=== PATIENT | male | born 1955 | race Caucasian/White ===

== ENCOUNTER 2020-02-01 08:27 | Outpatient (REF) | payer MEDICARE, SELFPAY ==
[2020-02-01 10:26] LABS: MANUAL DIFF FLAG NO
[2020-02-01 10:32] LABS: Basophils Percent Auto 0.4 % (0-2); Eosinophils Absolute Auto 0.3 X10*3/uL (0.0-0.4); Eosinophils Percent Auto 5.1 % (0-4); Hematocrit 41.8 % (42-52); Hemoglobin 13.6 g/dl (14.0-18.0); Imm Gran Abs Auto 0.04 X10*3/uL (0.00-0.03); Imm Gran Pct Auto 0.7 % (0.0-0.4); Lymphocytes Absolute Auto 1.2 X10*3/uL (1.2-4.9); Lymphocytes Percent Auto 21.2 % (20-40); Mean Corpuscular HGB Conc 32.5 g/dl (31.0-36.0); Mean Corpuscular Hemoglobin 31.7 pg (27.0-33.0); Mean Corpuscular Volume 97.4 fL (80-98); Mean Platelet Volume 11.3 fL (9.4-12.4); Monocytes Absolute Auto 0.4 X10*3/uL (0.1-1.2); Neutrophils Absolute Auto 3.5 X10*3/uL (2.0-8.3); Neutrophils Percent Auto 64.6 % (45-73); Platelet Count 109 X10*3/uL (160-400); Red Blood Count 4.29 X10*6/uL (4.60-5.80); Red Cell Distribution Width 12.8 % (11.0-16.0); White Blood Count 5.5 X10*3/uL (4.8-10.8)
[2020-02-01 10:55] LABS: Alanine Aminotransferase 14 U/L (0-40); Albumin Level 3.9 g/dL (3.5-5.0); Alkaline Phosphatase 38 U/L (39-117); Anion Gap 12 (12-20); Aspartate Amino Transferase 17 U/L (5-37); Bilirubin Total 0.6 mg/dL (0.0-1.0); Blood Urea Nitrogen 19 mg/dL (9-16); Calcium 8.6 mg/dL (8.4-10.2); Carbon Dioxide 32 mmol/L (22-29); Chloride 104 mmol/L (96-108); Cholesterol 136 mg/dL; Estimated Glomerular Filt Rate 48; Glucose Fasting 103 mg/dL (60-99); HDL Cholesterol 35 mg/dL; LDL Cholesterol Calculated 77 mg/dl; Potassium 3.7 mmol/l (3.3-5.1); Sodium 144 mmol/L (135-145); Total Protein 6.2 g/dL (6.5-8.0); Triglycerides 124 mg/dL
[2020-02-01 11:08] LABS: B Type Natriuretic Peptide 233 pg/mL (<100)
[2020-02-01 11:46] LABS: Microalbum/Creatinine Ratio Ur 437.6 ug/mg cr
== END 2020-02-01 08:28 | disposition home or self-care (01) ==
LOC: HO.WFDLDS 08:27
PROVIDERS: Visit Provider Family Medicine
DX: I50.9 Heart failure, unspecified (principal); K92.1 Melena; Z00.00 Encounter for general adult medical examination without abnormal findings; E78.1 Pure hyperglyceridemia; R03.0 Elevated blood-pressure reading, without diagnosis of hypertension; I11.0 Hypertensive heart disease with heart failure
CPT/HCPCS: 36415; 80053; 80061; 82043; 83880; 85025

== ENCOUNTER 2020-02-23 09:29 | Outpatient (REF) | payer MEDICARE, SELFPAY ==
[2020-02-23 10:53] LABS: B Type Natriuretic Peptide 164 pg/mL (<100)
[2020-02-23 10:54] LABS: Anion Gap 13 (12-20); Blood Urea Nitrogen 23 mg/dL (9-16); Calcium 9.2 mg/dL (8.4-10.2); Carbon Dioxide 30 mmol/L (22-29); Chloride 102 mmol/L (96-108); Estimated Glomerular Filt Rate 50; Glucose Random 93 mg/dL (60-115); Potassium 3.7 mmol/l (3.3-5.1); Sodium 141 mmol/L (135-145)
== END 2020-02-23 09:30 | disposition home or self-care (01) ==
LOC: HO.LAB 09:29
PROVIDERS: Visit Provider Family Medicine
DX: I50.9 Heart failure, unspecified (principal)
CPT/HCPCS: 80048; 83880

== ENCOUNTER 2020-02-28 10:58 | Outpatient (REF) | payer MEDICARE, SELFPAY ==
[2020-02-28 13:56] LABS: Anion Gap 12 (12-20); Blood Urea Nitrogen 28 mg/dL (9-16); Calcium 8.9 mg/dL (8.4-10.2); Carbon Dioxide 32 mmol/L (22-29); Chloride 102 mmol/L (96-108); Estimated Glomerular Filt Rate 48; Glucose Random 99 mg/dL (60-115); Potassium 4.3 mmol/l (3.3-5.1); Sodium 142 mmol/L (135-145)
[2020-02-28 14:04] LABS: B Type Natriuretic Peptide 137 pg/mL (<100)
== END 2020-02-28 10:59 | disposition home or self-care (01) ==
LOC: HO.WFDLDS 10:58
PROVIDERS: Visit Provider Family Medicine
DX: N18.9 Chronic kidney disease, unspecified (principal); I50.9 Heart failure, unspecified; Z13.9 Encounter for screening, unspecified
CPT/HCPCS: 80048; 83880

== ENCOUNTER 2020-03-20 10:02 | Outpatient (REF) | payer MEDICARE, SELFPAY ==
[2020-03-20 14:10] LABS: Alanine Aminotransferase 14 U/L (0-40); Albumin Level 4.5 g/dL (3.5-5.0); Alkaline Phosphatase 44 U/L (39-117); Anion Gap 12 (12-20); Aspartate Amino Transferase 16 U/L (5-37); Bilirubin Total 0.6 mg/dL (0.0-1.0); Blood Urea Nitrogen 27 mg/dL (9-16); Calcium 8.9 mg/dL (8.4-10.2); Carbon Dioxide 32 mmol/L (22-29); Chloride 104 mmol/L (96-108); Estimated Glomerular Filt Rate 46; Glucose Fasting 72 mg/dL (60-99); Microalbum/Creatinine Ratio Ur 1072.5 ug/mg cr; Potassium 4.7 mmol/l (3.3-5.1); Sodium 143 mmol/L (135-145); Total Protein 6.6 g/dL (6.5-8.0)
[2020-03-20 14:22] LABS: B Type Natriuretic Peptide 199 pg/mL (<100)
== END 2020-03-20 10:03 | disposition home or self-care (01) ==
LOC: HO.WFDLDS 10:02
PROVIDERS: PCP Family Medicine; Visit Provider Family Medicine
DX: I13.0 Hypertensive heart and chronic kidney disease with heart failure and stage 1 through stage 4 chronic kidney disease, or unspecified chronic kidney disease (principal); N18.9 Chronic kidney disease, unspecified; I50.9 Heart failure, unspecified; Z00.00 Encounter for general adult medical examination without abnormal findings
CPT/HCPCS: 80053; 82043; 83880

== ENCOUNTER 2020-03-25 16:00 | Inpatient (IN) | payer MEDICARE, SELFPAY ==
[2020-03-20 09:37] VITALS: BMI 38.3
--- NOTE | 2020-03-22 10:08 | HO.ANESPROP2 ---
Documented by User: Supriya Leblanc 03/22/20 13:07 HPI - Anesthesia Eval Consult details Narrative: 64yo M for Upper Endoscopy and Colonoscopy [facility] Past Medical History Medical History Chronic renal failure Chronic renal insufficiency Congestive heart failure COPD (chronic obstructive pulmonary disease) CVA (cerebral vascular accident) History of hepatitis C virus infection Nicotine dependence Peripheral vascular disease Pneumonia Thrombocytopenia Vocal cord polyps Surgical History Surgical History H/O bilateral hip replacements H/O colonoscopy History of esophagogastroduodenoscopy (EGD) Hx of cholecystectomy Social History Social History Smoking Status: Smoker, status unknown Years Smoked: 50 Smoked in Last 30 Days: Yes Patient Interested in Nicotine Replacement: No Patient Given Instructions on How to Stop Smoking: No Second Hand Smoke Exposure: No Use of substances other than those prescribed or required for medical reasons: No Advance Directives: No Advance Directives Information Provided: Yes Meds Allergies Allergy/AdvReac Type Severity Reaction Status Date / Time No Known Allergies Allergy Unknown Verified 03/20/20 10:48 Home Medications Medication Instructions Recorded Confirmed Type albuterol sulfate 90 mcg/actuation 1 - 2 puff INHALATION Q4H PRN 01/31/20 03/20/20 History aerosol inhaler flu vacc 2019-(63yr ml IM 01/31/20 History up)-MF59C(PF) 60 mcg(15 mcgx4)/0.5 mL IM syringe flu vacc [id number](63yr up)PF 180 ml IM 01/31/20 History mcg/0.5 mL intramuscular syringe pneumoc 13-jazmyn conj-dip cr(PF) 0.5 ml IM 01/31/20 History mL IM syringe aspirin 25 mg-dipyridamole 200 mg 1 cap PO BID 02/28/20 03/25/20 History capsule,ext.release 12 hr multiphase fluticasone 100 mcg-salmeterol 50 1 inh INHALATION BID 02/28/20 History mcg/dose blistr powdr for inhalation Exam Exam Date and Time: March 22, 2020 1008 Height,Weight and Vital Signs: Height 5 ft 11 in Weight 124.738 kg Pertinent Lab Results Pertinent Lab Results: Laboratory Tests 02/01/20 03/20/20 08:40 10:10 WBC 5.5 Hgb 13.6 L Hct 41.8 L Plt Count 109 L Sodium 143 Potassium 4.7 Chloride 104 Carbon Dioxide 32 H BUN 27 H Creatinine 1.51 H Narrative Narrative: EKG 02/2020: SR with PACs at 76; cannot exclude inferior infarct patter (poor data quality) ECHO: LVEF 60-65%; No RWMA; RV is mildly dilated, RV sys function is mildly reduced; No signif valve abnormalities Assessment and Plan Assessment Anesthesia Assessment: Chart Reviewed Documented by User: Nanette Owens 03/25/20 12:13 PMFSH Past Medical History Medical History Chronic renal failure Chronic renal insufficiency Congestive heart failure COPD (chronic obstructive pulmonary disease) CVA (cerebral vascular accident) History of hepatitis C virus infection Nicotine dependence Peripheral vascular disease Pneumonia Thrombocytopenia Vocal cord polyps Surgical History Surgical History H/O bilateral hip replacements H/O colonoscopy History of esophagogastroduodenoscopy (EGD) Hx of cholecystectomy Social History Social History Smoking Status: Smoker, status unknown Years Smoked: 50 Smoked in Last 30 Days: Yes Patient Interested in Nicotine Replacement: No Patient Given Instructions on How to Stop Smoking: No Second Hand Smoke Exposure: No Use of substances other than those prescribed or required for medical reasons: No Advance Directives: No Advance Directives Information Provided: Yes Meds Allergies Allergy/AdvReac Type Severity Reaction Status Date / Time No Known Allergies Allergy Unknown Verified 03/20/20 10:48 Home Medications Medication Instructions Recorded Confirmed Type albuterol sulfate 90 mcg/actuation 1 - 2 puff INHALATION Q4H PRN 01/31/20 03/20/20 History aerosol inhaler flu vacc (65yr ml IM 01/31/20 History up)-MF59C(PF) 60 mcg(15 mcgx4)/0.5 mL IM syringe flu vacc [id number](63yr up)PF 180 ml IM 01/31/20 History mcg/0.5 mL intramuscular syringe pneumoc 13-jazmyn conj-dip cr(PF) 0.5 ml IM 01/31/20 History mL IM syringe aspirin 25 mg-dipyridamole 200 mg 1 cap PO BID 02/28/20 03/25/20 History capsule,ext.release 12 hr multiphase fluticasone 100 mcg-salmeterol 50 1 inh INHALATION BID 02/28/20 History mcg/dose blistr powdr for inhalation Exam Airway Mallampati Class: III TM Dist: >3cm Neck ROM: Full
[2020-03-25] VITALS (15 sets, daily range): BP systolic 80–168; BP diastolic 47–105; PULSE 53–85; RESP 15–26; TEMP 35.6–38.1; O2SAT 76–100; BMI 37.3
--- NOTE | 2020-03-25 | US_ITS ---
EXAMINATION: US VENOUS ULTRASOUND WITH DOPPLER LOWER EXTREMITY, BILATERAL CLINICAL INFORMATION: Question DVT COMPARISON: None TECHNIQUE: Ultrasound of the deep veins is performed from the hip to the calf with compression sonography and color and pulse Doppler assessment. Spectral analysis with color-flow imaging is performed. FINDINGS: RIGHT: There is normal venous compression and respiratory variation and augmented flow. The visualized common femoral vein, superficial femoral vein, profunda femoral vein, popliteal vein, and the trifurcation region shows no evidence of deep venous thrombosis. There is no significant popliteal fossa cyst. LEFT: There is normal venous compression and respiratory variation and augmented flow. The visualized common femoral vein, superficial femoral vein, profunda femoral vein, popliteal vein, and the trifurcation region shows no evidence of deep venous thrombosis. There is no significant popliteal fossa cyst. If the patient's symptoms persist, followup ultrasound in 5 days 7 days might be of value to exclude proximal propagation from a non-visualized calf vein. US/US venous duplex LE BI IMPRESSION: No DVT demonstrated in the bilateral lower extremity.
--- NOTE | 2020-03-25 | XR_ITS ---
EXAMINATION: XR CHEST CLINICAL INFORMATION: Status post endotracheal tube placement COMPARISON: 10/10/2017 TECHNIQUE: Frontal view of the chest was obtained. FINDINGS: The patient is suboptimally positioned. There is an endotracheal tube with tip 6 cm above the moe. There is dense left base opacity and volume loss. Coarse interstitial markings are present. No pneumothorax. Cardiomediastinal silhouette is partially obscured by the left base consolidation. There is a right internal jugular approach central venous catheter with tip in the mid-lower superior vena cava. XR/XR chest 1V IMPRESSION: There is dense left base opacity which may represent atelectasis, aspiration, or pneumonia. There may be a concomitant pleural effusion as well.
--- NOTE | 2020-03-25 | XR_ITS ---
EXAMINATION: XR CHEST CLINICAL INFORMATION: Looking for possible perforation COMPARISON: Chest x-ray 03/25/2020 TECHNIQUE: Frontal view of the chest was obtained. Please note the upper approximately one third of both lungs were excluded from this chest x-ray. FINDINGS: Cardiac silhouette is not enlarged. Asymmetric prominence of the left perihilar structures. There is a small left-sided pleural effusion with suspected overlying airspace disease. Enteric tube terminates below the level of the diaphragm in a similar configuration. Endotracheal tube not clearly visualized is present. The distal portion of a right-sided suspected jugular catheter is similar in orientation. XR/XR chest 1V IMPRESSION: Suboptimal chest x-ray as the upper proximal one third of both lungs are excluded. There is asymmetrical prominence of left perihilar structures appears to be new finding from chest x-ray earlier today at 4:54 PM. Recommend repeat PA and lateral radiographs for more detailed evaluation.
--- NOTE | 2020-03-25 15:18 | PM.OP ---
Brief Operative Note Date of Service: 03/25/20 Pre-op diagnosis: Heme + stool, Melena. Post-op diagnosis: other (Gastropathy/gastritis, Hiatal hernia, Colon polyps, Diverticulosis, Internal hemorrhoids) Procedure: EGD with biopsy; Colonoscopy to cecum and TI with snare polypectomy x 5, with clipping of the polypectomy sites in the transverse colon, at 80cm, at 60cm, at 20cm. Surgeon: Dylon Barcenas Anesthesia: MAC Estimated blood loss (mL): 4.0 Pathology: other (A. Gastric antrum B. Cecal polyp C. Transverse colon polyp D. Polyp at 60cm E. Polyp at 80cm F. Polyp at 20cm) Condition: stable Disposition: PACU
[2020-03-25 15:50] LABS: Glucose, Whole Blood 100 mg/dL (60-115)
[2020-03-25 16:24] LABS: Pt Ventilation O2% 100%
[2020-03-25 16:25] LABS: pH ABG 7.23 (7.35-7.45)
[2020-03-25 16:26] LABS: Base Excess ABG 0.7; HCO3 ABG 30 mmol/l (22-26); Oxygen Saturation ABG 81.5 %; PO2 ABG 55 mmhg (83-108)
[2020-03-25 16:27] LABS: ABG PCO2 75 mmhg (32-45)
--- NOTE | 2020-03-25 17:06 | W.PM.CCHP ---
Procedures Central Line Placement Right IJ: Central Line Comments: Right internal jugular triple-lumen central venous catheter emergently placed for vasopressor support under ultrasound guidance and usual sterile conditions with no immediate complications. Line position verified on chest x-ray.
--- NOTE | 2020-03-25 17:07 | P.HPCC_ITS ---
History of Present Illness Date of Service: 03/25/20 64-year-old gentleman with underlying history of CVA, obesity, DELGADO, hep C, chronic renal failure, chronic congestive heart failure with recent admission to [facility] and at the end of December of 2019 for an aspiration pneumonia requiring ventilatory support admitted after an elective colonoscopy on 03/25/2020 when he required re-intubation postprocedure in the PACU for acute hypoxic and hypercapnic respiratory failure further complicated by hypotension requiring placement of central venous catheter and vasopressor support. Review of Systems Review of Systems: Yes unobtainable due to endotracheal tube and Unobtainable due to mental condition [facility] Past Medical History Medical History Chronic renal failure Chronic renal insufficiency Congestive heart failure COPD (chronic obstructive pulmonary disease) CVA (cerebral vascular accident) History of hepatitis C virus infection Nicotine dependence Peripheral vascular disease Pneumonia Thrombocytopenia Vocal cord polyps Surgical History Surgical History H/O bilateral hip replacements H/O colonoscopy History of esophagogastroduodenoscopy (EGD) Hx of cholecystectomy Social History Social History Smoking Status: Smoker, status unknown Years Smoked: 50 Smoked in Last 30 Days: Yes Patient Interested in Nicotine Replacement: No Patient Given Instructions on How to Stop Smoking: No Second Hand Smoke Exposure: No Use of substances other than those prescribed or required for medical reasons: No Advance Directives: No Advance Directives Information Provided: Yes Meds Allergies Allergy/AdvReac Type Severity Reaction Status Date / Time No Known Allergies Allergy Unknown Verified 03/20/20 10:48 Home Medications Medication Instructions Recorded Confirmed Type albuterol sulfate 90 mcg/actuation 1 - 2 puff INHALATION Q4H PRN 01/31/20 03/20/20 History aerosol inhaler flu vacc 2019-(65yr ml IM 01/31/20 History up)-MF59C(PF) 60 mcg(15 mcgx4)/0.5 mL IM syringe flu vacc [id number](63yr up)PF 180 ml IM 01/31/20 History mcg/0.5 mL intramuscular syringe pneumoc 13-jazmyn conj-dip cr(PF) 0.5 ml IM 01/31/20 History mL IM syringe aspirin 25 mg-dipyridamole 200 mg 1 cap PO BID 02/28/20 03/25/20 History capsule,ext.release 12 hr multiphase fluticasone 100 mcg-salmeterol 50 1 inh INHALATION BID 02/28/20 History mcg/dose blistr powdr for inhalation Physical Exam Vital Signs: Vital Signs: Last Vital Signs Temp 96.1 F L 03/25/20 16:56 Pulse 55 03/25/20 16:56 Resp 24 H 03/25/20 16:56 BP 80/47 L 03/25/20 16:56 Pulse Ox 81 L 03/25/20 16:56 Body Mass Index 37.3 Const: General: no acute distress and other (Sedated on the vent) Nutritional Appearance: obese Eyes: Sclerae: sclerae normal EOM: EOMs intact bilaterally Neck: Neck: Yes no lymphadenopathy, Yes trachea midline and Yes supple Resp: Auscultation: other (For air movement at the left base, otherwise clear) Cardio: Rate: bradycardic Rhythm: regular rhythm Heart sounds: no gallops, no murmurs and no rubs GI: Palpation (GI): Soft to palpation and Other GI palpation findings present ( Nontender) Auscultation: normal bowel sounds Extrem: General: No clubbing, No cyanosis and Yes edema (Trace bilateral) Results Labs Labs: Laboratory Results - last 24 hr 03/25/20 03/25/20 15:42 16:15 ABG pH 7.23 L ABG pCO2 75 H* ABG pO2 55 L ABG HCO3 30 H ABG O2 Saturation 81.5 ABG Base Excess 0.7 Oxygen Given 100% POC Glucose 100 Assessment and Plan (1) Acute respiratory failure with hypoxia and hypercapnia: Status: Acute Assessment: 64-year-old gentleman with underlying morbid obesity, COPD, CHF, admitted on 03/25/2020 when he required intubation in PACU after an elective colonoscopy for an acute hypoxic and hypercapnic respiratory failure with possible aspiration component. Plan: Neuro: No acute issues. Cardiac: Hypertension, likely secondary to requirements for sedation. Underlying history of congestive heart failure. Cardiac markers are pending. Pulmonary: Acute hypoxic and hypercapnic respiratory failure requiring intubation and ventilatory support. Possible aspiration pneumonia/pneumonitis component. Underlying obstructive sleep apnea/obesity hyperventilation syndrome. Renal: No acute issues. Underlying history of chronic renal disease Endo: No acute issues. GI: Status post colonoscopy with visualization biopsy of several polyps. ID: Empirically covered with Unasyn for possible aspiration pneumonitis/pneumonia. Heme/Onc: No acute issues. Psych: No acute issues. Miscellaneous: No acute issues. Prophylaxis: Ppi, intermittent pneumatic compression Diet: Nothing by mouth Critical care time spent: 90 minutes excluding separately billable procedures (2) Sleep apnea: Status: Acute (3) Chronic renal failure: Status: Acute Critical Care Time Critical Care Time (minutes): 90
[2020-03-25] MEDS: fentaNYL citrate/NS 1,000 MCG/100 ML PLAST..BAG 5 MCG IVCONT ×2 (17:27→23:24)
[2020-03-25] MEDS: propofoL 1,000 MG/100 ML VIAL 14.59 MG IVCONT ×3 (17:27→23:24)
[2020-03-25] MEDS: Chlorhexidine Gluc Oral Rinse 15 ML MOUTHWASH BUCCAL ×2 (17:29→23:23)
[2020-03-25] MEDS: Pantoprazole Sodium 40 MG in 0.9 % Sodium Chloride 100 ML 400 MG IV (17:29)
[2020-03-25 17:32] LABS: Basophils Percent Auto 0.4 % (0-2); Eosinophils Absolute Auto 0.2 X10*3/uL (0.0-0.4); Eosinophils Percent Auto 1.7 % (0-4); Hematocrit 42.6 % (42-52); Hemoglobin 14.1 g/dl (14.0-18.0); Imm Gran Abs Auto 0.11 X10*3/uL (0.00-0.03); Lymphocytes Absolute Auto 0.6 X10*3/uL (1.2-4.9); Lymphocytes Percent Auto 5.2 % (20-40); MANUAL DIFF FLAG SCAN; Mean Corpuscular HGB Conc 33.1 g/dl (31.0-36.0); Mean Corpuscular Hemoglobin 33.2 pg (27.0-33.0); Mean Corpuscular Volume 100.2 fL (80-98); Mean Platelet Volume 10.7 fL (9.4-12.4); Monocytes Absolute Auto 0.6 X10*3/uL (0.1-1.2); Monocytes Percent Auto 5.4 % (2-11); Neutrophils Absolute Auto 9.6 X10*3/uL (2.0-8.3); Neutrophils Percent Auto 86.3 % (45-73); Platelet Count 144 X10*3/uL (160-400); Red Blood Count 4.25 X10*6/uL (4.60-5.80); Red Cell Distribution Width 14.7 % (11.0-16.0); SCAN SMEAR FLAG 1; White Blood Count 11.1 X10*3/uL (4.8-10.8)
[2020-03-25 17:47] LABS: Lactic Acid 0.7 mmol/L (0.5-2.0)
[2020-03-25 17:49] LABS: Anion Gap 15 (12-20); Blood Urea Nitrogen 27 mg/dL (9-16); Calcium 8.8 mg/dL (8.4-10.2); Carbon Dioxide 29 mmol/L (22-29); Chloride 103 mmol/L (96-108); Creatinine Clr Calc Pharmacy 51.5; Estimated Glomerular Filt Rate 36; Glucose Random 98 mg/dL (60-115); Potassium 4.2 mmol/l (3.3-5.1); Sodium 143 mmol/L (135-145)
[2020-03-25 17:51] LABS: SLIDE REVIEW VERIFIED
[2020-03-25 17:56] LABS: B Type Natriuretic Peptide 261 pg/mL (<100)
[2020-03-25] MEDS: Ampicillin Sodium/Sulbactam Na 3 GM in 0.9 % Sodium Chloride 100 ML IV ×2 (19:39→23:25)
[2020-03-25] MEDS: Albuterol/Iprat 2.5/0.5MG 3 ML AMPUL.NEB INHALE (19:46)
[2020-03-25] MEDS: Albumin Human 25 % 100 ML IV (21:06)
[2020-03-25 22:41] LABS: Influenza A PCR NEGATIVE (Negative); Influenza B PCR NEGATIVE (Negative); Resp Syncy Virus RNA Qual PCR NEGATIVE (Negative); SARS COV2 PCR INHOUSE NEGATIVE (Negative)
--- NOTE | 2020-03-25 22:59 | OP_ITS ---
SURGEON: Dylon Barcenas MD INDICATIONS: The patient presents for evaluation of recently reported melena and heme-positive stool, as well as hematochezia, while hospitalized at [facility]. PREOPERATIVE DIAGNOSIS: Reported melena, heme-positive stool, hematochezia. POSTOPERATIVE DIAGNOSIS: Reported melena, heme-positive stool, hematochezia, gastritis, probable portal gastropathy, colon polyps, diverticulosis, internal hemorrhoids. PROCEDURE PERFORMED: Esophagogastroduodenoscopy with biopsies, and colonoscopy to the cecum and terminal ileum with snare polypectomy, placement of submucosal ink markings, and placement of Resolution clips. Full consent has been obtained from him for this, including risks of bleeding and perforation. ESTIMATED BLOOD LOSS: COMPLICATIONS: Respiratory compromise ANESTHESIA: Monitored anesthesia care, glucagon 1 mg IV x1 dose. ASSISTANTS: SPECIMENS: DESCRIPTION OF PROCEDURE: The patient was placed in the left lateral decubitus position. The Olympus video gastroscope was passed in the posterior oropharynx and upper esophagus under direct vision. The scope was passed slowly to the distal esophagus. The gastroesophageal junction appeared at 38 cm. There was no sign of any esophagitis nor varices. There was some slight irregularity consistent with some GERD changes. There was no definitive evidence of Colby's mucosa. The scope was advanced to the pylorus. The duodenum was cannulated to the descending portion. The duodenum including the bulb appeared normal without mass or ulceration. The scope was withdrawn back in the stomach. The gastric antrum had some changes of gastritis with some edema and erythema, but no erosions or ulceration. There was good peristalsis. The scope was retroflexed visualizing the proximal stomach carefully, which appeared consistent with a portal gastropathy with congestion and cobblestoning of the mucosa. There was no evidence of any varices. The scope was straightened. The scope was withdrawn back to the esophagus. Again, there was no evidence of any esophagitis nor varices. Of note I did not obtain any biopsies in the upper GI tract due to the fact that he has to go back on his Aggrenox, although based on the subsequent findings in his colonoscopy that proved to be a moot issue. The scope was withdrawn from the patient, he was turned around for the colonoscopy. The digital rectal exam revealed no abnormalities. The Olympus video pediatric colonoscope was entered into the rectum advanced easily to the cecum. Once in the cecum I did identify cecal pouch with appendiceal orifice and a normal-appearing ileocecal valve. The terminal ileum was cannulated and appeared normal. The scope was withdrawn back into the colon. The entire cecum was well visualized. In the cecum was an approximately 10 mm polyp, which was snared and recovered by suction. The polypectomy site appeared clean, without any sign of residual polyp nor bleeding. The scope was then slowly withdrawn assessing all mucosal surfaces carefully. Preparation was excellent. Throughout this portion of the procedure, the colon had a great deal of peristalsis and spasm, and the procedure was also made more difficult in regard to the patient coughing and continuing to pass flatus throughout the procedure. In the transverse colon was a large approximately 2.5 to 3 cm broad-based grossly adenomatous and somewhat friable lesion. This was removed in piecemeal fashion by snare polypectomy. Ultimately, there was no sign of any residual polyp and there was no bleeding. However, given the size of the lesion, I did place 2 submucosal ink markings on each side of the polypectomy site with good markings noted. I also placed 3 Resolution clips on the polypectomy site as well. the 2 large pieces of the polyp were removed via a net with the scope having to be removed from the patient twice and then readvanced back to the polypectomy site each time. The smaller piece of the polyp was recovered by suction. At 60 cm and at 80 cm were large, approximately 2 cm polyps on long and relatively thick stalks. These were each snared and recovered with the retrieval net. Again, each time the scope had to be removed from the patient and readvanced back to the polypectomy sites. Post-polypectomy, there did not appear to be any residual polyp nor bleeding. I did place resolution clips on each of those polypectomy sites. At 20 cm was an approximately 15 mm somewhat ulcerated and grossly adenomatous broad-based polyp which was snared in piecemeal fashion and recovered by withdrawing the pieces on the tip of the scope. Post-polypectomy, there did not appear to be any residual polyp tissue nor bleeding. I did place a Resolution clip on this area as well. Of note, all of the above areas had good hemostasis. Throughout the colon were also small less than 10 mm polyps, which were not removed at this time due to the lengthiness of the procedure. There was no sign of any colitis nor angiodysplasia. There was a moderate amount of sigmoid diverticulosis. In the rectum, the scope was retroflexed visualizing internal hemorrhoids, but no other pathology. The rectal mucosa appeared normal. The scope was straightened and withdrawn from the patient. IMPRESSION: 1. Multiple colon polyps, status post snare polypectomy, marking with submucosal ink, and placement of Resolution clips. 2. Diverticulosis. 3. Internal hemorrhoids. 4. Probable portal gastropathy. 5. Gastritis. 6. Small hiatal hernia. PLAN: The results of the pathology will be checked. Further plans will be made regarding colonoscopy followup and/or need for surgical intervention based on these pathology results. He was advised not to use any aspirin and NSAIDs for at least 1 to 2 weeks, but was advised that he could resume his Aggrenox by the end of this week. In regard to the upper GI findings, he does have some history of alcohol consumption as well as significant lung disease. He may have some combination of liver disease based on a component of alcohol and passive liver congestion. After the procedure the patient remained somewhat somnolent, was having a difficult time awakening from the anesthesia, and developed respiratory compromise. At that point, he was supported by providers from the anesthesia service, as well as from Dr. Fisher, the leaf sorter. Initial attempts at helping him breathe with CPAP were not successful and he was finally intubated for supportive care. He was then transferred to the ICU. I did review this with his in detail on the phone twice and advised her of his condition and guarded prognosis given the underlying medical issues. She did understand this. Hopefully, he will be able to make a recovery from this and we could then see him in the office and decide about any further potential colonoscopy followup based on his clinical condition. MD DEMARCO Glover/AMANDA / [id number] SAI
[2020-03-26] VITALS (34 sets, daily range): BP systolic 99–161; BP diastolic 47–75; PULSE 58–92; RESP 18–27; TEMP 37.5–38.3; O2SAT 90–100; BMI 38.3; BMI 37.3
[2020-03-26] MEDS: Albuterol/Iprat 2.5/0.5MG 3 ML AMPUL.NEB INHALE ×4 (00:29→17:25)
[2020-03-26] MEDS: propofoL 1,000 MG/100 ML VIAL 21.88 MG IVCONT ×2 (03:28→08:13)
[2020-03-26 05:57] LABS: Basophils Percent Auto 0.2 % (0-2); Hematocrit 42.3 % (42-52); Hemoglobin 13.8 g/dl (14.0-18.0); Imm Gran Pct Auto 0.5 % (0.0-0.4); Lymphocytes Absolute Auto 0.5 X10*3/uL (1.2-4.9); Lymphocytes Percent Auto 2.1 % (20-40); MANUAL DIFF FLAG SCAN; Mean Corpuscular HGB Conc 32.6 g/dl (31.0-36.0); Mean Corpuscular Hemoglobin 32.9 pg (27.0-33.0); Mean Platelet Volume 10.7 fL (9.4-12.4); Monocytes Absolute Auto 1.4 X10*3/uL (0.1-1.2); Monocytes Percent Auto 6.5 % (2-11); Neutrophils Absolute Auto 19.4 X10*3/uL (2.0-8.3); Neutrophils Percent Auto 90.7 % (45-73); Platelet Count 139 X10*3/uL (160-400); Red Blood Count 4.19 X10*6/uL (4.60-5.80); SCAN SMEAR FLAG 1; White Blood Count 21.4 X10*3/uL (4.8-10.8)
[2020-03-26 06:11] LABS: Base Excess VBG -2.3 mmol/L; HCO3 VBG 27 mmol/L; Oxygen Saturation VBG 85.1 %; PCO2 VBG 68 mmhg; PO2 VBG 56 mmhg; pH VBG 7.22 (7.32-7.43)
[2020-03-26] MEDS: Ampicillin Sodium/Sulbactam Na 3 GM in 0.9 % Sodium Chloride 100 ML IV ×4 (06:19→23:20)
[2020-03-26 06:22] LABS: Alanine Aminotransferase 12 U/L (0-40); Albumin Level 4.2 g/dL (3.5-5.0); Alkaline Phosphatase 34 U/L (39-117); Anion Gap 22 (12-20); Aspartate Amino Transferase 14 U/L (5-37); Bilirubin Total 0.9 mg/dL (0.0-1.0); Blood Urea Nitrogen 36 mg/dL (9-16); Calcium 8.8 mg/dL (8.4-10.2); Carbon Dioxide 25 mmol/L (22-29); Chloride 102 mmol/L (96-108); Creatinine Clr Calc Pharmacy 36.6; Estimated Glomerular Filt Rate 24; Glucose Random 111 mg/dL (60-115); Magnesium 1.7 mg/dL (1.6-2.6); Potassium 4.1 mmol/l (3.3-5.1); Sodium 145 mmol/L (135-145); Total Protein 6.4 g/dL (6.5-8.0)
[2020-03-26 06:26] LABS: Glucose, Whole Blood 123 mg/dL (60-115)
[2020-03-26 07:25] LABS: SLIDE REVIEW VERIFIED
--- NOTE | 2020-03-26 08:12 | P.CDIC_ITS ---
CDI Concurrent Query Service Date: 03/26/20 Documentation Clarification: Please clarify if you are treating a proba ble/suspected/likely or confirmed: Acute on chronic kidney disease Stage 1-5 Chronic kidney disease Stage 1-5 Please specify if known Provider Response: CKD Stage 4 PLEASE DO NOT DELETE/MODIFY EXISTING CONTENT Additional information is needed in order to code to the highest accuracy and appropriate Severity of Illness (SOI). Please clarify the information noted below in your progress notes and discharge summary. Risk Factors/Clinical Indicators/Treatments PN: Chronic renal failure, acute Bun 22 Cr 1.87 2.63 Gfr 36 24 History of CKD CDS: Ailyn Cox CCS, CDIS Contact Number: [phone]. [phone] Please Review the information above and exercise your independent professional judgment in responding to the query. If you concur, pleas document in the PROGRESS NOTES and DISCHARGE SUMMARY. If you do not agree with the query, please document in the query above. THIS QUERY IS PART OF THE PERMANENT MEDICAL RECORD
[2020-03-26] MEDS: Chlorhexidine Gluc Oral Rinse 15 ML MOUTHWASH BUCCAL ×3 (08:18→23:19)
--- NOTE | 2020-03-26 08:32 | P.POSTANES_ITS ---
Post Anesthesia Evaluation Post Anesthesia Evaluation Vital Signs: Vital Signs Temp Pulse Resp BP Pulse Ox 03/26/20 08:00 99.5 F 61 18 139/65 100 03/26/20 07:00 99.5 F 59 26 H 130/59 L 100 03/26/20 06:00 99.7 F 58 26 H 113/55 L 100 03/26/20 05:53 59 03/26/20 05:00 99.7 F 60 26 H 117/56 L 100 03/26/20 04:00 99.7 F 58 26 H 112/52 L 100 03/26/20 02:53 99.9 F 61 26 H 104/58 L 03/26/20 02:00 100.0 F 61 26 H 100/55 L 100 03/26/20 01:00 100.4 F 65 26 H 103/55 L 99 03/26/20 00:29 66 03/26/20 00:00 100.9 F H 70 26 H 107/58 L 96 03/25/20 23:00 85 111/95 H 03/25/20 22:00 71 16 111/56 L 94 03/25/20 21:00 100.5 F H 66 26 H 130/69 100 Anesthesia: Monitored (Started as MAC and airway was obtained after case due to hypercarbic hypoxic respiratory failure. Patient in the ICU currently intubated with high PEEP to maintain saturations around 94-98%) and General Endotracheal- GETA Mental Status: Sedated (Patient sedated ) Pain Control: Satisfactory Nausea/Vomiting: None Hydration: Adequate Anesthesia-Related Issues: No Anes. Related Issues (Patient in prolonged endos copy upper and lower for greater than 2 hours. Patient became hypoxic and hypercarbic with a respiratory acidosis on VBG. Patient currently on pressors but weaing off. )
--- NOTE | 2020-03-26 09:46 | P.CDIC_ITS ---
CDI Concurrent Query Service Date: 03/26/20 Documentation Clarification: Please clarify if you are treating a proba ble/suspected/likely or confirmed: Specifics: Chronic diastolic and/or systolic Congestive heart failure Acute on chronic diastoic and/or systolic Congestive heart failure Please specify if known Provider Response: Other Other Diagnosis: Chronic diastolic congestive heart failure with no acute exacerbation noted at this time PLEASE DO NOT DELETE/MODIFY EXISTING CONTENT Additional information is needed in order to code to the highest accuracy and appropriate Severity of Illness (SOI). Please clarify the information noted below in your progress notes and discharge summary. Risk Factors/Clinical Indicators/Treatments H&P: History of chronic Congestive heart failure BNP 261 Furosemide 20 mg PO QAM at home. CDS: Ailyn Cox CCS, CDIS Contact Number: [phone] Please Review the information above and exercise your independent professional judgment in responding to the query. If you concur, pleas document in the PROGRESS NOTES and DISCHARGE SUMMARY. If you do not agree with the query, pleas e document in the query above. THIS QUERY IS PART OF THE PERMANENT MEDICAL RECORD
--- NOTE | 2020-03-26 10:41 | MHC.CM.PN ---
Pt is intubated/vented s/p colon polypectomy. Per ICU MD rounds, expect to wean sedation and hopefully extubate later today. CM assessment completed with and HCP, Zabrina Rees [phone]. IMM reviewed with and sent to her home via certified mail.
[2020-03-26] MEDS: propofoL 1,000 MG/100 ML VIAL 32.82 MG IVCONT (11:42)
[2020-03-26 12:42] LABS: Glucose, Whole Blood 118 mg/dL (60-115)
[2020-03-26] MEDS: fentaNYL citrate/NS 1,000 MCG/100 ML PLAST..BAG 12.5 MCG IVCONT (13:39)
[2020-03-26] MEDS: propofoL 1,000 MG/100 ML VIAL 36.47 MG IVCONT ×4 (13:44→22:34)
--- NOTE | 2020-03-26 15:00 | CA_ITS ---
Transthoracic Echocardiogram Patient (Last, First, Middle): Jonel Rees, Gender: Male Date of : 1955 Age: 64 Procedure Date: 03/26/2020 Procedure Type: Transthoracic Echocardiogram Location: ICU Height: 180.34 cm Weight: 121.56 kg BSA: 2.39 m2 Heart Rate: bpm BP: 130 / 57 mmHg Adviser Sales: Referring MD: Jose Alejandro Fisher MD Symptoms: dyspnea Study Quality: Fair ECG Rhythm: Sinus Conclusions: - Normal left ventricular cavity size. There is mildly increased left ventricular wall thickness. The left ventricular systolic function is normal. - E/E prime ratio is between 8 and 15 consistent with indeterminate filling pressures. - Mildly increased right ventricular cavity size. There is mild to moderately decreased right ventricular systolic function. - PASP is 46 mm Hg + right atrial pressure. - The inferior vena cava is dilated and does not collapse with inspiration. Patient intubated and cannot comment about the right atrial pressure. Findings Procedure Information Contrast agent, definity, is being given per protocol without apparent complications. Left Ventricle Normal left ventricular cavity size. There is mildly increased left ventricular wall thickness. The left ventricular systolic function is normal. The visually estimated ejection fraction is between 60-65%. There is no evidence of regional wall motion abnormalities. Diastolic function is indeterminate on the basis of available data. Spectral Doppler is indicative of an impaired relaxation filling pattern. E/E prime ratio is between 8 and 15 consistent with indeterminate filling pressures. Right Ventricle Mildly increased right ventricular cavity size. There is mild to moderately decreased right ventricular systolic function. Atria The left atrium was not well visualized. The right atrium was not well visualized. Aortic Valve The aortic valve was not well visualized. There is mild aortic valve stenosis. Mitral Valve Likely normal mitral valve structure and function. There is no mitral valve stenosis. Pulmonic Valve The pulmonic valve was not well visualized. Tricuspid Valve Likely normal tricuspid valve structure and function. There is trace tricuspid valve regurgitation. PASP is 46 mm Hg + right atrial pressure. Great Vessels All visible segments of the aorta are normal in size. The pulmonary artery was not well visualized. Venous The inferior vena cava is dilated and does not collapse with inspiration. Patient intubated and cannot comment about the right atrial pressure. Pericardium/Pleural There is no evidence of pericardial effusion. Prior Study Comparison No prior study available for comparison. Measurements 2D Linear Measurements IVSd: 1.28 0.6-0.9/0.6-1.0 cm LVIDd: 5.39 3.9-5.3/4.2-5.9 cm LVIDd Index: 2.26 2.4-3.2/2.2-3.1 cm/m2 LVIDs: 3.85 2.0-3.6 cm LVPWd: 1.34 0.7-1.1 cm Ao Root: 3.40 2.1-3.5 cm LA Diam: 4.20 2.7-3.8/3.0-4.0 cm LAIDs Index: 1.76 1.5-2.3 cm/m2 LV Mass: 371.62 67-162/88-224 g LV Mass Index: 155.49 43-95/49-115 g/m2 LVOT Diam: 2.20 3.0+(-)1.3 cm Mitral Valve MV Pk E: 0.73 MV PK A: 0.91 MV Decel Time: 264.00 E/A: 0.80 E'Lateral: 5.03 E'Medial: 7.35 E/E' Med: 9.90 E/E' Lat: 14.50 PHT: 77.00 MVA PHT: 2.86 Decel Bowie: 2.76 Aortic Valve AoV Pk Norberto: 2.33 AoV Mn Norberto: 1.44 AoV VTI: 0.41 AoV Pk Grad: 22.00 Aov Mn Grad: 11.00 BI Cont.VTI: 2.30 LVOT LVOT Pk Norberto: 1.20 LVOT Mn Norberto: 0.77 LVOT VTI: 0.25 LVOT Pk Grad: 6.00 LVOT Mn Grad: 3.00 LVOT Diam: 2.20 LVOT Area: 3.80 Diastolic Function MV Pk E: 0.73 MV Pk A: 0.91 E/A: 0.80 E'Medial: 7.35 E/E' Med: 9.90 E' Laterial: 5.03 E/E' Lat: 14.50 Tricuspid Valve TR Pk Norberto: 3.36 TR Pk Grad: 45.00 RA Press: 3.00 Great Vessels Aorta Ao Root-2D: 3.40 2.0-3.7 cm Pulmonary Valve PV Pk Norberto: 1.56 Peak PV Grad: 10.00 Updated in Other Vendor System with Status of Final Rj Mathews MD electronically signed on 03/26/2020 2:35:01 PM with status of Final
--- NOTE | 2020-03-26 15:16 | PC.NURSE ---
Pt on propofol and fentanyl for sedation, pt awake, and agitated, banging on siderails, sedation increased for patient comfort and restraints remain for pt safety. levo being titrated, bp trending 100systollically with maps greater than 65/ temp trending 100.0 this afternoon, md aware/ fio2 being titrated down, 02 sat currently 90-92% on 40% fio2 continues on ac settings, peep decreased by md to 8, large amounts of thick mejia secretions suctioned, md aware continues npo, og tube off of suction tlc remains to right ij, all ports flush with ease torres output 350ml of colleen urine this shift updated by this RN
[2020-03-26 16:00] LABS: Glucose, Whole Blood 107 mg/dL (60-115)
--- NOTE | 2020-03-26 16:33 | PM.CCPN ---
Subjective Subjective Date of Service: 03/26/20 Interval History: 64-year-old gentleman with underlying history of CVA, obesity, DELGADO, hep C, chronic renal failure, chronic congestive heart failure with recent admission to [facility] and at the end of December of 2019 for an aspiration pneumonia requiring ventilatory support admitted after an elective colonoscopy on 03/25/2020 when he required re-intubation postprocedure in the PACU for acute hypoxic and hypercapnic respiratory failure further complicated by hypotension requiring placement of central venous catheter and vasopressor support. No events overnight. FiO2 requirements and PEEP requirements improved significantly. Physical Exam Vital Signs: Vital Signs: Last Vital Signs Temp 100.0 F 03/26/20 16:00 Pulse 59 03/26/20 16:00 Resp 26 H 03/26/20 16:00 BP 115/57 L 03/26/20 16:00 Pulse Ox 91 L 03/26/20 16:00 Body Mass Index 37.3 Const: General: no acute distress and other (Sedated on the vent) Nutritional Appearance: obese Eyes: Sclerae: sclerae normal EOM: EOMs intact bilaterally Neck: Neck: Yes no lymphadenopathy, Yes trachea midline and Yes supple Resp: Auscultation: other (Left basilar poor air movement) Cardio: Rate: regular rate Rhythm: regular rhythm Heart sounds: no gallops, no murmurs and no rubs GI: Palpation (GI): Soft to palpation and Other GI palpation findings present ( Nontender) Auscultation: normal bowel sounds Extrem: General: No clubbing, No cyanosis and Yes edema (1+ bilateral) Objective Data Labs CBC & Chem 7: 03/26/20 05:30 03/26/20 05:30 Labs: Laboratory Results - last 24 hr 03/25/20 03/25/20 03/25/20 17:21 17:21 17:21 WBC 11.1 H RBC 4.25 L Hgb 14.1 Hct 42.6 MCV 100.2 H MCH 33.2 H MCHC 33.1 RDW 14.7 Plt Count 144 L D MPV 10.7 Immature Gran % (Auto) 1.0 H Neut % (Auto) 86.3 H Lymph % (Auto) 5.2 L [place] % (Auto) 5.4 Eos % (Auto) 1.7 Baso % (Auto) 0.4 Lymph # (Auto) 0.6 L [place] # (Auto) 0.6 Eos # (Auto) 0.2 Baso # (Auto) 0.0 Abs Immat Gran (auto) 0.11 H Absolute Neuts (auto) 9.6 H Absolute Nucleated RBC 0.000 Nucleated RBC % (auto) 0.0 Smear Tech's Comments VERIFIED VBG pH VBG pCO2 VBG pO2 VBG HCO3 VBG O2 Saturation VBG Base Excess Sodium 143 Potassium 4.2 Chloride 103 Carbon Dioxide 29 Anion Gap 15 BUN 27 H Creatinine 1.87 H Estim Creat Clear Calc 51.5 Estimated GFR 36 POC Glucose Random Glucose 98 Lactic Acid 0.7 Calcium 8.8 Magnesium Total Bilirubin AST ALT Alkaline Phosphatase Troponin I High Sens B-Natriuretic Peptide Total Protein Albumin Coronavirus (PCR) Influenza Type A (PCR) Influenza Type B (PCR) RSV RNA Qual (PCR) 03/25/20 03/25/20 03/26/20 17:21 21:32 05:30 WBC 21.4 H RBC 4.19 L Hgb 13.8 L Hct 42.3 MCV 101.0 H MCH 32.9 MCHC 32.6 RDW 15.0 Plt Count 139 L MPV 10.7 Immature Gran % (Auto) 0.5 H Neut % (Auto) 90.7 H Lymph % (Auto) 2.1 L [place] % (Auto) 6.5 Eos % (Auto) 0.0 Baso % (Auto) 0.2 Lymph # (Auto) 0.5 L [place] # (Auto) 1.4 H Eos # (Auto) 0.0 Baso # (Auto) 0.0 Abs Immat Gran (auto) 0.10 H Absolute Neuts (auto) 19.4 H Absolute Nucleated RBC 0.000 Nucleated RBC % (auto) 0.0 Smear Tech's Comments VERIFIED VBG pH VBG pCO2 VBG pO2 VBG HCO3 VBG O2 Saturation VBG Base Excess Sodium Potassium Chloride Carbon Dioxide Anion Gap BUN Creatinine Estim Creat Clear Calc Estimated GFR POC Glucose Random Glucose Lactic Acid Calcium Magnesium Total Bilirubin AST ALT Alkaline Phosphatase Troponin I High Sens 6.0 B-Natriuretic Peptide 261 H Total Protein Albumin Coronavirus (PCR) NEGATIVE Influenza Type A (PCR) NEGATIVE Influenza Type B (PCR) NEGATIVE RSV RNA Qual (PCR) NEGATIVE 03/26/20 03/26/20 03/26/20 05:30 05:30 06:23 WBC RBC Hgb Hct MCV MCH MCHC RDW Plt Count MPV Immature Gran % (Auto) Neut % (Auto) Lymph % (Auto) [place] % (Auto) Eos % (Auto) Baso % (Auto) Lymph # (Auto) [place] # (Auto) Eos # (Auto) Baso # (Auto) Abs Immat Gran (auto) Absolute Neuts (auto) Absolute Nucleated RBC Nucleated RBC % (auto) Smear Tech's Comments VBG pH 7.22 L VBG pCO2 68 VBG pO2 56 VBG HCO3 27 VBG O2 Saturation 85.1 VBG Base Excess -2.3 Sodium 145 Potassium 4.1 Chloride 102 Carbon Dioxide 25 Anion Gap 22 H BUN 36 H Creatinine 2.63 H Estim Creat Clear Calc 36.6 Estimated GFR 24 POC Glucose 123 H Random Glucose 111 Lactic Acid Calcium 8.8 Magnesium 1.7 Total Bilirubin 0.9 AST 14 ALT 12 Alkaline Phosphatase 34 L D Troponin I High Sens B-Natriuretic Peptide Total Protein 6.4 L Albumin 4.2 Coronavirus (PCR) Influenza Type A (PCR) Influenza Type B (PCR) RSV RNA Qual (PCR) 03/26/20 03/26/20 12:37 15:57 WBC RBC Hgb Hct MCV MCH MCHC RDW Plt Count MPV Immature Gran % (Auto) Neut % (Auto) Lymph % (Auto) [place] % (Auto) Eos % (Auto) Baso % (Auto) Lymph # (Auto) [place] # (Auto) Eos # (Auto) Baso # (Auto) Abs Immat Gran (auto) Absolute Neuts (auto) Absolute Nucleated RBC Nucleated RBC % (auto) Smear Tech's Comments VBG pH VBG pCO2 VBG pO2 VBG HCO3 VBG O2 Saturation VBG Base Excess Sodium Potassium Chloride Carbon Dioxide Anion Gap BUN Creatinine Estim Creat Clear Calc Estimated GFR POC Glucose 118 H 107 Random Glucose Lactic Acid Calcium Magnesium Total Bilirubin AST ALT Alkaline Phosphatase Troponin I High Sens B-Natriuretic Peptide Total Protein Albumin Coronavirus (PCR) Influenza Type A (PCR) Influenza Type B (PCR) RSV RNA Qual (PCR) Progress Note: A&P Assessment and plan (1) Acute respiratory failure with hypoxia and hypercapnia: Status: Acute Assessment and Plan: Assessment: 64-year-old gentleman with underlying morbid obesity, COPD, CHF, admitted on 03/25/2020 when he required intubation in PACU after an elective colonoscopy for an acute hypoxic and hypercapnic respiratory failure with an aspiration component. Plan: Neuro: No acute issues. Cardiac: Hypotension, secondary to requirements for sedation. No evidence of septic shock. Pressor requirements improving with lessening of sedation. Underlying history of congestive heart failure. . Pulmonary: Acute hypoxic and hypercapnic respiratory failure requiring intubation and ventilatory support secondary to aspiration with resulting pneumonitis. Underlying obstructive sleep apnea/obesity hypoventilation syndrome. Renal: No acute issues. Underlying history of chronic renal disease Endo: No acute issues. GI: Status post colonoscopy with visualization biopsy of several polyps. ID: Empirically covered with Unasyn for aspiration pneumonitis. Will consider discontinuation in the next 24-48 hours. Heme/Onc: No acute issues. Psych: No acute issues. Miscellaneous: No acute issues. Prophylaxis: Ppi, intermittent pneumatic compression Diet: Nothing by mouth Critical care time spent: 45 minutes (2) Aspiration pneumonitis: Status: Acute Time Spent With Patient Total time spent with greater than 50% in coordination of care (as documented) at patient's floor/unit and/or counseling patient:: 0 Critical Care Time 45
[2020-03-26 18:43] LABS: Glucose, Whole Blood 106 mg/dL (60-115)
[2020-03-26] MEDS: fentaNYL citrate/NS 1,000 MCG/100 ML PLAST..BAG 10 MCG IVCONT (23:38)
[2020-03-26 23:50] LABS: Glucose, Whole Blood 104 mg/dL (60-115)
[2020-03-27] VITALS (22 sets, daily range): BP systolic 108–168; BP diastolic 51–109; PULSE 61–103; RESP 16–30; TEMP 37.1–37.9; O2SAT 87–97; BMI 38.0
[2020-03-27] MEDS: Albuterol/Iprat 2.5/0.5MG 3 ML AMPUL.NEB INHALE ×5 (00:19→23:53)
[2020-03-27] MEDS: propofoL 1,000 MG/100 ML VIAL 36.47 MG IVCONT ×3 (01:04→06:19)
[2020-03-27] MEDS: Ampicillin Sodium/Sulbactam Na 3 GM in 0.9 % Sodium Chloride 100 ML IV (05:30)
[2020-03-27 06:55] LABS: MANUAL DIFF FLAG NO
[2020-03-27 06:58] LABS: Glucose, Whole Blood 116 mg/dL (60-115)
[2020-03-27 07:00] LABS: Base Excess VBG 3.2 mmol/L; HCO3 VBG 28 mmol/L; Oxygen Saturation VBG 97.2 %; PCO2 VBG 41 mmhg; PO2 VBG 93 mmhg; pH VBG 7.44 (7.32-7.43)
[2020-03-27 07:19] LABS: Basophils Percent Auto 0.2 % (0-2); Eosinophils Absolute Auto 0.2 X10*3/uL (0.0-0.4); Eosinophils Percent Auto 2.2 % (0-4); Hematocrit 36.8 % (42-52); Hemoglobin 12.1 g/dl (14.0-18.0); Imm Gran Abs Auto 0.05 X10*3/uL (0.00-0.03); Imm Gran Pct Auto 0.6 % (0.0-0.4); Lymphocytes Absolute Auto 0.8 X10*3/uL (1.2-4.9); Lymphocytes Percent Auto 8.4 % (20-40); Mean Corpuscular HGB Conc 32.9 g/dl (31.0-36.0); Mean Corpuscular Hemoglobin 33.2 pg (27.0-33.0); Mean Corpuscular Volume 100.8 fL (80-98); Mean Platelet Volume 11.3 fL (9.4-12.4); Monocytes Absolute Auto 0.5 X10*3/uL (0.1-1.2); Monocytes Percent Auto 5.2 % (2-11); Neutrophils Absolute Auto 7.6 X10*3/uL (2.0-8.3); Neutrophils Percent Auto 83.4 % (45-73); Platelet Count 115 X10*3/uL (160-400); Red Blood Count 3.65 X10*6/uL (4.60-5.80); White Blood Count 9.1 X10*3/uL (4.8-10.8)
[2020-03-27] MEDS: Chlorhexidine Gluc Oral Rinse 15 ML MOUTHWASH BUCCAL (07:30)
--- NOTE | 2020-03-27 07:30 | PC.NURSE ---
ASSUMED CARE OF PT AT 1900. PT MAINTAINED ON AC VENT SETTINGS. NO RESP DIFFICULTIES. O2 SAT 91-93. GOOD SEDATION EFFECT ON PROPOFOL AND FENTANYL. HAD TO DECREASED BOTH DRIPS EARLY IN THE SHIFT DUE TO PINPOINT PUPILS AND NO RESPONSE TO PAINFUL STIMULI BUT THEN PT STARTED TO WAKE UP AND BECOME AGITATED AND PROPOFOL INCREASED BACK TO MAX RATE/DOSE WITH GOOD EFFECT. BP STABLE ON LEVOPHED. MONITOR SHOWS NSR, RATE 60-70'S, OCC PVC/PAC NOTED. U/O 40-75 ML/HR. PT TURNED AND REPOS Q2H. SKIN IS INTACT
[2020-03-27 07:44] LABS: Albumin Level 3.7 g/dL (3.5-5.0); Anion Gap 15 (12-20); Blood Urea Nitrogen 37 mg/dL (9-16); Calcium 8.2 mg/dL (8.4-10.2); Carbon Dioxide 31 mmol/L (22-29); Chloride 105 mmol/L (96-108); Creatinine Clr Calc Pharmacy 54.7; Estimated Glomerular Filt Rate 39; Glucose Random 105 mg/dL (60-115); Magnesium 2.1 mg/dL (1.6-2.6); Phosphorus 3.1 mg/dL (2.7-4.5); Potassium 3.5 mmol/l (3.3-5.1); Sodium 147 mmol/L (135-145)
--- NOTE | 2020-03-27 11:09 | MHC.CM.PN ---
Per MD rounds, pt just extubated at 9:20 am. On 5L nasal cannula. May need CPAP/BIPAP. Not appropriate to speak with patient at this time. Expect d/c home / no services. to provide transportation
[2020-03-27 11:55] LABS: Glucose, Whole Blood 111 mg/dL (60-115)
[2020-03-27] MEDS: lisinopriL 10 MG TABLET PO (12:41)
[2020-03-27] MEDS: Furosemide 20 MG/2 ML VIAL IVPUSH (13:25)
--- NOTE | 2020-03-27 14:52 | PM.CCPN ---
Subjective Subjective Date of Service: 03/27/20 Interval History: 64-year-old gentleman with underlying history of CVA, obesity, DELGADO, hep C, chronic renal failure, chronic congestive heart failure with recent admission to [facility] and at the end of December of 2019 for an aspiration pneumonia requiring ventilatory support admitted after an elective colonoscopy on 03/25/2020 when he required re-intubation postprocedure in the PACU for acute hypoxic and hypercapnic respiratory failure secondary to aspiration pneumonitis, noninfectious. No events overnight. Extubated uneventfully this a.m.. Physical Exam Vital Signs: Vital Signs: Last Vital Signs Temp 99.3 F 03/27/20 13:00 Pulse 91 03/27/20 14:00 Resp 20 03/27/20 14:00 BP 120/62 03/27/20 14:00 Pulse Ox 88 L 03/27/20 14:00 Body Mass Index 38.0 Const: General: no acute distress, alert and awake Nutritional Appearance: obese Eyes: Sclerae: sclerae normal EOM: EOMs intact bilaterally Neck: Neck: Yes no lymphadenopathy, Yes trachea midline and Yes supple Resp: Effort & Inspection: normal respiratory effort and no respiratory distress Auscultation: clear to auscultation bilaterally Cardio: Rate: regular rate Rhythm: regular rhythm Heart sounds: no gallops, no murmurs and no rubs GI: Palpation (GI): Soft to palpation and Other GI palpation findings present ( Nontender) Auscultation: normal bowel sounds Extrem: General: No clubbing, No cyanosis and Yes edema (Trace bilateral) Objective Data Labs CBC & Chem 7: 03/27/20 06:15 03/27/20 06:15 Labs: Laboratory Results - last 24 hr 03/26/20 03/26/20 03/26/20 15:57 18:39 23:25 WBC RBC Hgb Hct MCV MCH MCHC RDW Plt Count MPV Immature Gran % (Auto) Neut % (Auto) Lymph % (Auto) [place] % (Auto) Eos % (Auto) Baso % (Auto) Lymph # (Auto) [place] # (Auto) Eos # (Auto) Baso # (Auto) Abs Immat Gran (auto) Absolute Neuts (auto) Absolute Nucleated RBC Nucleated RBC % (auto) VBG pH VBG pCO2 VBG pO2 VBG HCO3 VBG O2 Saturation VBG Base Excess Sodium Potassium Chloride Carbon Dioxide Anion Gap BUN Creatinine Estim Creat Clear Calc Estimated GFR POC Glucose 107 106 104 Random Glucose Calcium Phosphorus Magnesium Albumin 03/27/20 03/27/20 03/27/20 05:43 06:15 06:15 WBC 9.1 RBC 3.65 L Hgb 12.1 L Hct 36.8 L MCV 100.8 H MCH 33.2 H MCHC 32.9 RDW 15.0 Plt Count 115 L MPV 11.3 Immature Gran % (Auto) 0.6 H Neut % (Auto) 83.4 H Lymph % (Auto) 8.4 L [place] % (Auto) 5.2 Eos % (Auto) 2.2 Baso % (Auto) 0.2 Lymph # (Auto) 0.8 L [place] # (Auto) 0.5 Eos # (Auto) 0.2 Baso # (Auto) 0.0 Abs Immat Gran (auto) 0.05 H Absolute Neuts (auto) 7.6 Absolute Nucleated RBC 0.000 Nucleated RBC % (auto) 0.0 VBG pH VBG pCO2 VBG pO2 VBG HCO3 VBG O2 Saturation VBG Base Excess Sodium 147 H Potassium 3.5 Chloride 105 Carbon Dioxide 31 H Anion Gap 15 BUN 37 H Creatinine 1.76 H Estim Creat Clear Calc 54.7 Estimated GFR 39 POC Glucose 116 H Random Glucose 105 Calcium 8.2 L D Phosphorus 3.1 Magnesium 2.1 Albumin 3.7 03/27/20 03/27/20 06:15 11:51 WBC RBC Hgb Hct MCV MCH MCHC RDW Plt Count MPV Immature Gran % (Auto) Neut % (Auto) Lymph % (Auto) [place] % (Auto) Eos % (Auto) Baso % (Auto) Lymph # (Auto) [place] # (Auto) Eos # (Auto) Baso # (Auto) Abs Immat Gran (auto) Absolute Neuts (auto) Absolute Nucleated RBC Nucleated RBC % (auto) VBG pH 7.44 H VBG pCO2 41 VBG pO2 93 VBG HCO3 28 VBG O2 Saturation 97.2 VBG Base Excess 3.2 Sodium Potassium Chloride Carbon Dioxide Anion Gap BUN Creatinine Estim Creat Clear Calc Estimated GFR POC Glucose 111 Random Glucose Calcium Phosphorus Magnesium Albumin Progress Note: A&P Assessment and plan (1) Aspiration pneumonitis: Status: Acute Assessment and Plan: Assessment: 64-year-old gentleman with underlying morbid obesity, COPD, CHF, admitted on 03/25/2020 when he required intubation in PACU after an elective colonoscopy for an acute hypoxic and hypercapnic respiratory failure secondary to non infectious aspiration pneumonitis. Plan: Neuro: No acute issues. Cardiac: No acute issues. Underlying history of congestive heart failure. . Pulmonary: Acute hypoxic and hypercapnic respiratory failure requiring intubation and ventilatory support secondary to aspiration chemical pneumonitis, improved significantly. Extubated uneventfully this a.m.. Underlying obstructive sleep apnea/obesity hypoventilation syndrome. Patient requires nocturnal CPAP at 12 cm of water and as needed for naps. Renal: No acute issues. Underlying history of chronic renal disease. Endo: No acute issues. GI: Status post colonoscopy with visualization biopsy of several polyps. ID: No acute issues. Heme/Onc: No acute issues. Psych: No acute issues. Miscellaneous: No acute issues. Prophylaxis: Intermittent pneumatic compression Diet: Full liquid Critical care time spent: 45 minutes (2) Acute respiratory failure with hypoxia and hypercapnia: Status: Acute (3) Sleep apnea: Status: Acute (4) COPD (chronic obstructive pulmonary disease): Status: Acute (5) Chronic renal failure: Status: Acute Time Spent With Patient Total time spent with greater than 50% in coordination of care (as documented) at patient's floor/unit and/or counseling patient:: 0 Critical Care Time 45
[2020-03-28] VITALS (11 sets, daily range): BP systolic 131–175; BP diastolic 74–99; PULSE 70–87; RESP 18–20; TEMP 36.1–37.1; O2SAT 89–92; BMI 38.6
[2020-03-28 06:01] LABS: MANUAL DIFF FLAG NO
--- NOTE | 2020-03-28 06:04 | PC.NURSE ---
Patient's torres removed at 0600. Pt is due to void by 1200.
[2020-03-28 06:10] LABS: Basophils Percent Auto 0.3 % (0-2); Eosinophils Absolute Auto 0.4 X10*3/uL (0.0-0.4); Eosinophils Percent Auto 5.4 % (0-4); Hematocrit 36.6 % (42-52); Hemoglobin 11.9 g/dl (14.0-18.0); Imm Gran Abs Auto 0.04 X10*3/uL (0.00-0.03); Imm Gran Pct Auto 0.6 % (0.0-0.4); Lymphocytes Absolute Auto 0.9 X10*3/uL (1.2-4.9); Lymphocytes Percent Auto 12.3 % (20-40); Mean Corpuscular HGB Conc 32.5 g/dl (31.0-36.0); Mean Corpuscular Hemoglobin 32.6 pg (27.0-33.0); Mean Corpuscular Volume 100.3 fL (80-98); Mean Platelet Volume 10.5 fL (9.4-12.4); Monocytes Absolute Auto 0.5 X10*3/uL (0.1-1.2); Monocytes Percent Auto 6.4 % (2-11); Neutrophils Absolute Auto 5.2 X10*3/uL (2.0-8.3); Platelet Count 103 X10*3/uL (160-400); Red Blood Count 3.65 X10*6/uL (4.60-5.80); Red Cell Distribution Width 14.3 % (11.0-16.0)
[2020-03-28 06:12] LABS: PCO2 VBG 48 mmhg; pH VBG 7.43 (7.32-7.43)
[2020-03-28 06:13] LABS: Base Excess VBG 5.3 mmol/L; HCO3 VBG 31 mmol/L; Oxygen Saturation VBG 90.5 %; PO2 VBG 60 mmhg
[2020-03-28] MEDS: Albuterol/Iprat 2.5/0.5MG 3 ML AMPUL.NEB INHALE ×2 (06:15→17:32)
[2020-03-28 06:34] LABS: Albumin Level 3.6 g/dL (3.5-5.0); Anion Gap 13 (12-20); Blood Urea Nitrogen 24 mg/dL (9-16); Calcium 8.4 mg/dL (8.4-10.2); Carbon Dioxide 30 mmol/L (22-29); Chloride 104 mmol/L (96-108); Creatinine Clr Calc Pharmacy 79.6; Estimated Glomerular Filt Rate 59; Glucose Random 104 mg/dL (60-115); Magnesium 1.9 mg/dL (1.6-2.6); Phosphorus 2.3 mg/dL (2.7-4.5); Potassium 3.6 mmol/l (3.3-5.1); Sodium 143 mmol/L (135-145)
[2020-03-28] MEDS: lisinopriL 10 MG TABLET PO (08:32)
--- NOTE | 2020-03-28 15:54 | P.EN_ITS ---
Event Note Date of Service: 03/28/20 Event Note: 64-year-old male admitted initially to ICU after colonoscopy w ith acute hypoxic respiratory failure secondary to chemical pneumonitis , hypercarbic respiratory failure secondary to sleep apnea and was intubated, extubated on 03/27, patient was transferred to floor, blood cultures remain negative, antibiotic stopped per ICU patient seen and examined at bedside on exam alert abdomen soft, diminished breath sounds at bases admitted with acute hypoxic and hypercarbic respiratory failure secondary to sleep apnea and aspiration pneumonitis currently extubated and currently on 2 L of oxygen will advanced diet, continue CPAP at night continue nebulizers, will wean down oxygen as tolerated
[2020-03-29] VITALS (7 sets, daily range): BP systolic 150–165; BP diastolic 77–97; PULSE 54–87; RESP 18–20; TEMP 36.3–36.8; O2SAT 91–97
[2020-03-29] MEDS: Albuterol/Iprat 2.5/0.5MG 3 ML AMPUL.NEB INHALE ×3 (00:24→11:32)
[2020-03-29] MEDS: lisinopriL 10 MG TABLET PO (08:57)
--- NOTE | 2020-03-29 10:02 | PM.DS ---
DS: Providers Provider Date of admission: 03/25/20 16:00 Primary care physician: Jonel Lacey. DS: Diagnosis Discharge Diagnosis (1) Aspiration pneumonitis: Status: Acute (2) Acute respiratory failure with hypoxia and hypercapnia: Status: Acute (3) Sleep apnea: Status: Acute (4) COPD (chronic obstructive pulmonary disease): Status: Acute (5) Chronic renal failure: Status: Acute DS: Medications Discharge Medications Home Medications: Home Medications Medication Instructions Recorded Confirmed albuterol sulfate 90 mcg/actuation 1 - 2 puff INHALATION Q4H PRN 01/31/20 03/20/20 aerosol inhaler flu vacc 2020-21(65yr ml IM 01/31/20 up)-MF59C(PF) 60 mcg(15 mcgx4)/0.5 mL IM syringe flu vacc [id number](65yr up)PF 180 ml IM 01/31/20 mcg/0.5 mL intramuscular syringe pneumoc 13-jazmyn conj-dip cr(PF) 0.5 ml IM 01/31/20 mL IM syringe aspirin 25 mg-dipyridamole 200 mg 1 cap PO BID 02/28/20 03/25/20 capsule,ext.release 12 hr multiphase fluticasone 100 mcg-salmeterol 50 1 inh INHALATION BID 02/28/20 mcg/dose blistr powdr for inhalation Previous Rx's Medication Instructions Recorded nicotine 14 mg/24 hr daily 1 patch TRANSDERMAL DAILY 28 Days 01/31/20 transdermal patch #28 ea atorvastatin 40 mg tablet 40 mg PO DAILY 90 Days #90 tab 02/12/20 fluticasone 500 mcg-salmeterol 50 1 inh INHALATION Q12H 30 Days #60 02/22/20 mcg/dose blistr powdr for ea inhalation fluticasone propionate 230 2 puff INHALATION Q12H 30 Days #12 02/22/20 mcg-salmeterol 21 mcg/actuation g HFA inhaler furosemide 20 mg tablet 10 mg PO QAM 30 Days #15 tab 02/22/20 lisinopril 5 mg tablet 5 mg PO DAILY 90 Days #90 tab 02/22/20 nifedipine 60 mg tablet,extended 60 mg PO DAILY 90 Days #90 tab 02/22/20 release carvedilol 25 mg tablet 37.5 mg PO Q12H 30 Days #90 tab 12/03/20 allopurinol 300 mg tablet 300 mg PO DAILY 90 Days #90 tab 03/20/20 doxazosin 4 mg tablet 4 mg PO BEDTIME 90 Days #90 tab 03/20/20 fenofibrate nanocrystallized 145 145 mg PO DAILY 90 Days #90 tab 03/20/20 mg tablet fluticasone propionate 50 1 spray INTRANASAL Q12H 30 Days 03/20/20 mcg/actuation nasal #15.8 ml spray,suspension DS: Summary Hospital Course Hospital Course: 64-year-old gentleman with underlying history of CVA, obesity, [place]GADO, hep C, chronic renal failure, chronic congestive heart failure with recent admission to [facility] and at the end of December of 2019 admitted during this admission for an aspiration pneumonia requiring ventilatory support admitted after an elective colonoscopy on 03/25/2020 when he required re-intubation postprocedure in the PACU for acute hypoxic and hypercapnic respiratory failure further complicated by hypotension requiring placement of central venous catheter and vasopressor support. patient was extubated and weaned off from pressors, transferred to floor, patient refused to wear CPAP, patient was stable cultures remain negative, patient was saturating around 92 on room air, patient refused home oxygen evaluation, patient was stable discharged home, Per patient he is scheduled to have outpatient sleep study Time Spent with Patient Time attestation: Total time spent providing and/or coordinating discharge services: Physical Exam Vital Signs: Vital Signs: Last Vital Signs Temp 98.3 F 03/29/20 08:00 Pulse 54 03/29/20 08:57 Resp 18 03/29/20 08:00 BP 150/97 H 03/29/20 08:57 Pulse Ox 97 03/29/20 08:00 Body Mass Index 38.6 DS: Data Data Completed and Pending Completed studies during hospitalization [Text1]: Pending at discharge 03/25/20 12:37 Surgical [PTH] Routine Labs on day of discharge: 03/25/20 XR chest 1V Stat XR chest 1V Stat US venous duplex LE BI Stat 03/25/20 Breakfast NPO Diet 03/25/20 11:51 Albuterol Sulfate (0.083%) [Ventolin (0.083%)] 2.5 mg INHALE ONCE PRN 03/25/20 11:52 Sodium Phosphate,[place]-Dibasic [Fleet Enema] 133 ml MT ONCE PRN 03/25/20 12:00 Lactated Ringers [Lr] 1,000 ml IVCONT 20 mls/hr 03/25/20 12:07 Lidocaine HCl 2 % MPF [Xylocaine 2 % MPF] 5 ml .ROUTE .STK-MED ONE propofoL [Diprivan] 200 mg IVPUSH .STK-MED ONE 03/25/20 12:13 Vital Signs Q1H 03/25/20 12:15 Lactated Ringers [Lr] 1,000 ml IVCONT 100 mls/hr 03/25/20 12:37 Surgical [PTH] Routine 03/25/20 12:54 propofoL [Diprivan] 200 mg IVPUSH .STK-MED ONE 03/25/20 13:19 propofoL [Diprivan] 200 mg IVPUSH .STK-MED ONE 03/25/20 13:39 propofoL [Diprivan] 200 mg IVPUSH .STK-MED ONE 03/25/20 13:56 Glucagon,Human Recombinant [Glucagen] 1 mg .ROUTE .STK-MED ONE 03/25/20 14:00 propofoL [Diprivan] 200 mg IVPUSH .STK-MED ONE 03/25/20 14:28 propofoL [Diprivan] 200 mg IVPUSH .STK-MED ONE 03/25/20 15:33 ABG (RT) ONCE RT BiPAP/CPAP CONT 03/25/20 15:42 Glucose, Whole Blood Routine ePHEDrine sulfate 50 mg .ROUTE .STK-MED ONE propofoL [Diprivan] 200 mg IVPUSH .STK-MED ONE 03/25/20 15:57 ePHEDrine sulfate 50 mg .ROUTE .STK-MED ONE propofoL [Diprivan] 200 mg IVPUSH .STK-MED ONE 03/25/20 15:58 Midazolam HCl/PF [Versed] 2 mg .ROUTE .STK-MED ONE 03/25/20 16:00 Continuous pulse oximetry ONCE Ventilator Assessment/Vent Bundle Q4HR Chlorhexidine Gluc Oral Rinse [Peridex] 15 ml BUCCAL Q8H Naloxone HCl [Narcan] 0.2 mg IVPUSH Q2M PRN Norepinephrine Bitartrate/NS [Levophed] 8 mg in 250 ml IVCONT Per Protocol mcg/kg/min Pantoprazole Sodium [Protonix] 40 mg 0.9 % Sodium Chloride [Ns] 100 ml IV DAILY fentaNYL citrate/NS [Sublimaze/NS] 1,000 mcg in 100 ml IVCONT 50 mcg/hr Vent Settings CONT 03/25/20 16:02 Glucose, blood poc Q6HR Arterial Blood Gas Routine ABG (RT) NOW 03/25/20 16:03 Transfer Order Routine 03/25/20 16:06 fentaNYL citrate/NS [Sublimaze/NS] 1,000 mcg in 100 ml IVCONT As directed 03/25/20 16:30 Insulin Lispro [Humalog] See Dose Instructions SUBCUT QIDACHS 03/25/20 16:31 propofoL [Diprivan] 1,000 mg in 100 ml IVCONT As directed 03/25/20 16:45 propofoL [Diprivan] 1,000 mg in 100 ml IVCONT Per Protocol mcg/kg/min 03/25/20 17:21 B Type Natriuretic Peptide Stat Basic Metabolic Panel NOW Complete Blood Count Auto Diff NOW Lactic Acid Stat SLIDE REVIEW Routine Troponin-I High Sensitivity Stat 03/25/20 17:29 Pantoprazole Sodium [Protonix] 40 mg .ROUTE .STK-MED ONE 03/25/20 18:00 Ampicillin Sodium/Sulbactam Na [Unasyn] 3 gm 0.9 % Sodium Chloride [Ns] 100 ml IV Q6H 03/25/20 19:01 Non-behavioral order assessment ONCE 03/25/20 19:38 Ampicillin Sodium/Sulbactam Na [Unasyn] 3 gm .ROUTE .STK-MED ONE 03/25/20 20:53 Albumin Human 25 % [Kedbumin 25 %] 100 ml IV ONCE 03/25/20 21:32 SARS-CoV2/FLU/RSV Stat 03/25/20 23:20 Ampicillin Sodium/Sulbactam Na [Unasyn] 3 gm .ROUTE .STK-MED ONE 03/26/20 05:30 Complete Blood Count Auto Diff DAILY@0600 Comprehensive Met. Panel AM Magnesium AM SLIDE REVIEW Routine Venous Blood Gas AM 03/26/20 06:17 Ampicillin Sodium/Sulbactam Na [Unasyn] 3 gm .ROUTE .STK-MED ONE 03/26/20 06:23 Glucose, Whole Blood Routine 03/26/20 08:05 Perflutren Lipid Microspheres [Definity] 2.2 mg IVPUSH .STK-MED ONE 03/26/20 12:37 Glucose, Whole Blood Routine 03/26/20 13:36 Ampicillin Sodium/Sulbactam Na [Unasyn] 3 gm .ROUTE .STK-MED ONE 03/26/20 15:00 CA echo transthorac w con Routine 03/26/20 15:57 Glucose, Whole Blood Routine 03/26/20 17:27 Ampicillin Sodium/Sulbactam Na [Unasyn] 3 gm .ROUTE .[facility] ONE 03/26/20 18:39 Glucose, Whole Blood Routine 03/26/20 20:15 Insulin Lispro [Humalog] See Dose Instructions SUBCUT Q6H 03/26/20 23:09 Ampicillin Sodium/Sulbactam Na [Unasyn] 3 gm .ROUTE .[facility] ONE 03/26/20 23:25 Glucose, Whole Blood Routine 03/27/20 00:00 Insulin Lispro [Humalog] See Protocol SUBCUT Q6H 03/27/20 05:32 Ampicillin Sodium/Sulbactam Na [Unasyn] 3 gm .ROUTE .[facility] ONE 03/27/20 05:43 Glucose, Whole Blood Routine 03/27/20 06:15 Albumin Level Routine Basic Metabolic Panel DAILY@0600 Complete Blood Count Auto Diff DAILY@0600 Magnesium DAILY@0600 Phosphorus DAILY@0600 Venous Blood Gas DAILY@0600 03/27/20 11:51 Glucose, Whole Blood Routine 03/27/20 12:47 Furosemide [Lasix] 20 mg IVPUSH ONCE ONE 03/27/20 15:29 Transfer Order Routine 03/27/20 Lunch Full Liquid Diet 03/28/20 05:20 Albumin Level Routine Basic Metabolic Panel DAILY@0600 Complete Blood Count Auto Diff DAILY@0600 Magnesium DAILY@0600 Phosphorus DAILY@0600 Venous Blood Gas DAILY@0600 03/29/20 00:50 Magnesium Hydrox/Alum Hydrox [Maalox] 15 ml PO ONCE ONE Laboratory Last Values WBC 7.0 X10*3/uL (4.8-10.8) 03/28/20 05:20 RBC 3.65 X10*6/uL (4.60-5.80) L 03/28/20 05:20 Hgb 11.9 g/dl (14.0-18.0) L 03/28/20 05:20 Hct 36.6 % (42-52) L 03/28/20 05:20 MCV 100.3 fL (80-98) H 03/28/20 05:20 MCH 32.6 pg (27.0-33.0) 03/28/20 05:20 MCHC 32.5 g/dl (31.0-36.0) 03/28/20 05:20 RDW 14.3 % (11.0-16.0) 03/28/20 05:20 Plt Count 103 X10*3/uL (160-400) L 03/28/20 05:20 MPV 10.5 fL (9.4-12.4) 03/28/20 05:20 Immature Gran % (Auto) 0.6 % (0.0-0.4) H 03/28/20 05:20 Neut % (Auto) 75.0 % (45-73) H 03/28/20 05:20 Lymph % (Auto) 12.3 % (20-40) L 03/28/20 05:20 [place] % (Auto) 6.4 % (2-11) 03/28/20 05:20 Eos % (Auto) 5.4 % (0-4) H 03/28/20 05:20 Baso % (Auto) 0.3 % (0-2) 03/28/20 05:20 Lymph # (Auto) 0.9 X10*3/uL (1.2-4.9) L 03/28/20 05:20 [place] # (Auto) 0.5 X10*3/uL (0.1-1.2) 03/28/20 05:20 Eos # (Auto) 0.4 X10*3/uL (0.0-0.4) 03/28/20 05:20 Baso # (Auto) 0.0 X10*3/uL (0.0-0.2) 03/28/20 05:20 Abs Immat Gran (auto) 0.04 X10*3/uL (0.00-0.03) H 03/28/20 05:20 Absolute Neuts (auto) 5.2 X10*3/uL (2.0-8.3) 03/28/20 05:20 Absolute Nucleated RBC 0.000 X10*3/uL (0.0-0.012) 03/28/20 05:20 Nucleated RBC % (auto) 0.0 /100WBC (0.0-0.2) 03/28/20 05:20 Smear Tech's Comments VERIFIED 03/26/20 05:30 ABG pH 7.23 (7.35-7.45) L 03/25/20 16:15 ABG pCO2 75 mmhg (32-45) H* 03/25/20 16:15 ABG pO2 55 mmhg (83-108) L 03/25/20 16:15 ABG HCO3 30 mmol/l (22-26) H 03/25/20 16:15 ABG O2 Saturation 81.5 % 03/25/20 16:15 ABG Base Excess 0.7 03/25/20 16:15 VBG pH 7.43 (7.32-7.43) 03/28/20 05:20 VBG pCO2 48 mmhg 03/28/20 05:20 VBG pO2 60 mmhg 03/28/20 05:20 VBG HCO3 31 mmol/L 03/28/20 05:20 VBG O2 Saturation 90.5 % 03/28/20 05:20 VBG Base Excess 5.3 mmol/L 03/28/20 05:20 Oxygen Given 100% 03/25/20 16:15 Sodium 143 mmol/L (135-145) 03/28/20 05:20 Potassium 3.6 mmol/l (3.3-5.1) 03/28/20 05:20 Chloride 104 mmol/L (96-108) 03/28/20 05:20 Carbon Dioxide 30 mmol/L (22-29) H 03/28/20 05:20 Anion Gap 13 (12-20) 03/28/20 05:20 BUN 24 mg/dL (9-16) H 03/28/20 05:20 Creatinine 1.22 mg/dL (0.5-1.4) 03/28/20 05:20 Estim Creat Clear Calc 79.6 03/28/20 05:20 Estimated GFR 59 03/28/20 05:20 POC Glucose 111 mg/dL (60-115) 03/27/20 11:51 Random Glucose 104 mg/dL (60-115) 03/28/20 05:20 Lactic Acid 0.7 mmol/L (0.5-2.0) 03/25/20 17:21 Calcium 8.4 mg/dL (8.4-10.2) 03/28/20 05:20 Phosphorus 2.3 mg/dL (2.7-4.5) L 03/28/20 05:20 Magnesium 1.9 mg/dL (1.6-2.6) 03/28/20 05:20 Total Bilirubin 0.9 mg/dL (0.0-1.0) 03/26/20 05:30 AST 14 U/L (5-37) 03/26/20 05:30 ALT 12 U/L (0-40) 03/26/20 05:30 Alkaline Phosphatase 34 U/L (39-117) L D 03/26/20 05:30 Troponin I High Sens 6.0 ng/L (<3.5-35.0) 03/25/20 17:21 B-Natriuretic Peptide 261 pg/mL (<100) H 03/25/20 17:21 Total Protein 6.4 g/dL (6.5-8.0) L 03/26/20 05:30 Albumin 3.6 g/dL (3.5-5.0) 03/28/20 05:20 Coronavirus (PCR) NEGATIVE (Negative) 03/25/20 21:32 Influenza Type A (PCR) NEGATIVE (Negative) 03/25/20 21:32 Influenza Type B (PCR) NEGATIVE (Negative) 03/25/20 21:32 RSV RNA Qual (PCR) NEGATIVE (Negative) 03/25/20 21:32 Discharge Plan Discharge Anticipated Discharge Date/Time: 03/29/20 09:55 Patient Disposition: Home, Self-Care Referrals: Jonel Lacey MD [Primary Care Provider] - Discharge Medications: Continued atorvastatin 40 mg tablet 40 mg PO DAILY 90 Days Qty: 90 RF: 4 Advair HFA 230-21 mcg/actuation HFA aerosol inhaler 2 puff inhalation Q12H 30 Days Qty: 12 RF: 4 carvedilol 25 mg tablet 37.5 mg PO Q12H 30 Days Qty: 90 RF: 2 nifedipine 60 mg tablet extended release 60 mg PO DAILY 90 Days Qty: 90 RF: 3 fluticasone propion-salmeterol [Wixela Inhub] 500-50 mcg/dose blister with device 1 inh inhalation Q12H 30 Days Qty: 60 RF: 5 lisinopril 5 mg tablet 5 mg PO DAILY 90 Days Qty: 90 RF: 4 furosemide [Lasix] 20 mg tablet 10 mg PO QAM 30 Days Qty: 15 RF: 1 aspirin-dipyridamole [Aggrenox] 25-200 mg capsule, ER multiphase 12 hr 1 cap PO BID RF: 0 fluticasone propion-salmeterol [Advair Diskus] 100-50 mcg/dose blister with device 1 inh inhalation BID RF: 0 fluticasone propionate [Flonase Allergy Relief] 50 mcg/actuation spray,suspension 1 spray intranasal Q12H 30 Days Qty: 15.8 RF: 6 doxazosin 4 mg tablet 4 mg PO BEDTIME 90 Days Qty: 90 RF: 3 allopurinol 300 mg tablet 300 mg PO DAILY 90 Days Qty: 90 RF: 3 fenofibrate nanocrystallized 145 mg tablet 145 mg PO DAILY 90 Days Qty: 90 RF: 4 flu vac 2019 [id number](PF) 60 mcg (15 mcg x 4)/0.5 mL syringe IM RF: 0 albuterol sulfate 90 mcg/actuation HFA aerosol inhaler 1 - 2 puff inhalation Q4H PRN (Reason: Shortness Of Breath) RF: 0 pneumoc 13-jazmyn conj-dip cr(PF) 0.5 mL syringe IM RF: 0 flu vacc [id number](65yr up)PF 180 mcg/0.5 mL syringe IM RF: 0 nicotine [Nicoderm CQ] 14 mg/24 hr patch 24 hour 1 patch transdermal DAILY 28 Days Qty: 28 RF: 2 Discharge Orders: Discharge Order (Routine); Ordered 03/25/20 Ordered By: Dylon Barcenas Diet: advance to usual diet Activity on Discharge: As tolerated Discharge Date/Time: 03/29/20 11:55 Activity Restrictions/Additional Instructions: Do not use aspirin nor NSAIDs for 10 days. Resume Aggrenox on Wednesday03/29/2020. Continue Prevacid daily.See me in 3 months. Call me sooner as needed. Visit Report Forms: Patient Portal Discharge page Care Plan Goals: see above Health Concerns: see above Plan of Treatment: see above
--- NOTE | 2020-03-29 12:06 | MHC.CM.PN ---
Patient will be discharged home today no services. Family will provide transportation. Nurse and patient updated.
== END 2020-03-29 11:55 | disposition home or self-care (01) | DRG 208 ==
LOC: HO.ICU 16:19 → HO.IMC 03-27 16:09
PROVIDERS: Internal Medicine; Registered Nurse Community Health; Admitting Provider Internal Medicine Pulmonary Disease; PCP Family Medicine; Visit Provider Internal Medicine
PROC: 0BH18EZ Insertion of Endotracheal Airway into Trachea, Via Natural or Artificial Opening Endoscopic (ICD-10-PCS; principal; 2020-03-25 13:00)
DX: J69.0 Pneumonitis due to inhalation of food and vomit (principal); J96.02 Acute respiratory failure with hypercapnia; J96.01 Acute respiratory failure with hypoxia; I13.0 Hypertensive heart and chronic kidney disease with heart failure and stage 1 through stage 4 chronic kidney disease, or unspecified chronic kidney disease; N18.4 Chronic kidney disease, stage 4 (severe); I50.32 Chronic diastolic (congestive) heart failure; K63.5 Polyp of colon; K44.9 Diaphragmatic hernia without obstruction or gangrene; Z96.643 Presence of artificial hip joint, bilateral; Z20.828 Contact with and (suspected) exposure to other viral communicable diseases; Z86.73 Personal history of transient ischemic attack (TIA), and cerebral infarction without residual deficits; Z79.82 Long term (current) use of aspirin; Z79.899 Other long term (current) drug therapy
CPT/HCPCS: 0241U; 36415; 36600; 71045; 80048; 80053; 82040; 82803; 82947; 83605; 83735; 83880; 84100; 84484; 85025; 88305; 88342; 93306; 93970; 94002; 94003; 94640; 94660; C1758; J0295; J1610; J1940; J2250; J3010; P9047

== ENCOUNTER → 2020-03-26 08:10 | Outpatient (BNVA) | payer MEDICARE, SELFPAY | PROVIDERS: Visit Provider Psychiatry & Neurology Neurology | DX: Z76.89 Persons encountering health services in other specified circumstances (principal) ==

== ENCOUNTER 2020-07-15 11:12 | Outpatient (REF) | payer MEDICARE, SELFPAY ==
[2020-07-15 14:00] LABS: Alanine Aminotransferase 14 U/L (0-40); Albumin Level 4.3 g/dL (3.5-5.0); Alkaline Phosphatase 42 U/L (39-117); Anion Gap 11 (12-20); Aspartate Amino Transferase 14 U/L (5-37); Bilirubin Total 0.7 mg/dL (0.0-1.0); Blood Urea Nitrogen 28 mg/dL (9-16); Calcium 9.2 mg/dL (8.4-10.2); Carbon Dioxide 33 mmol/L (22-29); Chloride 104 mmol/L (96-108); Estimated Glomerular Filt Rate 38; Glucose Random 92 mg/dL (60-115); Potassium 4.3 mmol/L (3.3-5.1); Sodium 144 mmol/L (135-145); Total Protein 6.7 g/dL (6.5-8.0)
[2020-07-15 14:06] LABS: B Type Natriuretic Peptide 216 pg/mL (<100)
== END 2020-07-15 11:13 | disposition home or self-care (01) ==
LOC: HO.WFDLDS 11:12
PROVIDERS: Visit Provider Family Medicine
DX: N18.9 Chronic kidney disease, unspecified (principal); I13.0 Hypertensive heart and chronic kidney disease with heart failure and stage 1 through stage 4 chronic kidney disease, or unspecified chronic kidney disease; I50.9 Heart failure, unspecified
CPT/HCPCS: 36415; 80053; 83880

== ENCOUNTER 2020-12-31 08:25 | Outpatient (REF) | payer MEDICARE, SELFPAY ==
--- NOTE | ~2020-12-31 | US_ITS ---
EXAMINATION: US SCROTUM CLINICAL INFORMATION: Testicular pain, unspecified. COMPARISON: Previous exam December 2019 TECHNIQUE: A sonogram of the scrotum was performed assessing jensen-scale appearance and color Doppler flow. Spectral Doppler analysis of the arterial and venous flow were performed in the testes bilaterally. FINDINGS: RIGHT: Right testicle measures 5.63 x 2.95 x 4.49 cm, volume 39.1 mL. No focal testicular parenchymal lesions are visualized. There is a solitary small calcification. Spectral Doppler analysis of the arterial and venous flow is normal in the right testis. Right epididymal head is normal in size. There is a 7 x 4 x 5 mm cyst adjacent to the epididymis questionable for an epididymal head cyst or a cys of the appendix epididymis. There is a small right hydrocele. No right varicocele is seen. Right epididymal Doppler flow is normal. LEFT: Left testicle measures 4.78 x 3.59 x 3.68 cm, volume 33.0 mL. No focal testicular parenchymal lesions are visualized. There is a solitary small calcification. Spectral Doppler analysis of the arterial and venous flow is normal in the left testis. Left epididymal head is normal in size. Is a left hydrocele. There is a left varicocele. Left epididymal Doppler flow is normal. There is echogenic material seen in the left scrotal canal superior to the testicle. Appearance is questionable for a hernia versus lipoma of the cord. US/US scrotum IMPRESSION: Small bilateral hydroceles. Small left varicocele. Echogenic material in the left inguinal canal questionable for lipoma of the cord versus hernia.
== END 2020-12-31 08:26 | disposition home or self-care (01) ==
LOC: HO.HMGCX 08:25
PROVIDERS: PCP Family Medicine; Visit Provider Family Medicine
DX: N50.819 Testicular pain, unspecified (principal)
CPT/HCPCS: 76870

== ENCOUNTER 2021-04-08 10:19 | Outpatient (REF) | payer MEDICARE, SELFPAY ==
[2021-04-08 13:56] LABS: MANUAL DIFF FLAG NO
[2021-04-08 14:00] LABS: Basophils Percent Auto 0.6 % (0-2); Eosinophils Absolute Auto 0.5 X10*3/uL (0.0-0.4); Hematocrit 48.5 % (42.0-52.0); Hemoglobin 15.6 g/dl (14.0-18.0); Imm Gran Abs Auto 0.07 X10*3/uL (0.00-0.03); Lymphocytes Absolute Auto 1.1 X10*3/uL (1.2-4.9); Lymphocytes Percent Auto 15.9 % (20-40); Mean Corpuscular HGB Conc 32.2 g/dl (31.0-36.0); Mean Corpuscular Hemoglobin 33.1 pg (27.0-33.0); Mean Corpuscular Volume 102.8 fL (80.0-98.0); Monocytes Absolute Auto 0.6 X10*3/uL (0.1-1.2); Monocytes Percent Auto 8.8 % (2-11); Neutrophils Absolute Auto 4.6 x10*3/uL (2.0-8.3); Neutrophils Percent Auto 66.7 % (45-73); Platelet Count 104 X10*3/uL (160-400); Red Blood Count 4.72 X10*6/uL (4.60-5.80); Red Cell Distribution Width 13.3 % (11.0-16.0)
[2021-04-08 14:53] LABS: Alanine Aminotransferase 13 U/L (0-40); Alkaline Phosphatase 45 U/L (39-117); Anion Gap 10 (12-20); Aspartate Amino Transferase 13 U/L (5-37); Bilirubin Total 0.9 mg/dL (0.0-1.0); Blood Urea Nitrogen 23 mg/dL (9-16); Calcium 9.5 mg/dL (8.4-10.2); Carbon Dioxide 34 mmol/L (22-29); Chloride 104 mmol/L (96-108); Cholesterol 114 mg/dL; Estimated Glomerular Filt Rate 46; Glucose Fasting 109 mg/dL (60-99); HDL Cholesterol 41 mg/dL; LDL Cholesterol Calculated 58 mg/dl; Potassium 4.3 mmol/L (3.3-5.1); Sodium 144 mmol/L (135-145); Total Protein 6.4 g/dL (6.5-8.0); Triglycerides 79 mg/dL
[2021-04-08 14:54] LABS: Prostate Specific Antigen Scr 0.37 ng/mL (<0.05-4.0); TSH reflex Free T4 0.67 uIU/mL (0.32-4.0)
[2021-04-08 15:00] LABS: Uric Acid 5.1 mg/dL (3.4-7.0)
[2021-04-08 15:16] LABS: B Type Natriuretic Peptide 156 pg/mL (<100)
[2021-04-08 15:52] LABS: Creatinine Urine 173.27 mg/dL; Microalbum/Creatinine Ratio Ur 799.3 ug/mg cr
== END 2021-04-08 10:20 | disposition home or self-care (01) ==
LOC: HO.WFDLDS 10:19
PROVIDERS: Visit Provider Family Medicine
DX: Z00.00 Encounter for general adult medical examination without abnormal findings (principal); Z12.5 Encounter for screening for malignant neoplasm of prostate; I11.0 Hypertensive heart disease with heart failure; I50.9 Heart failure, unspecified; M10.9 Gout, unspecified
CPT/HCPCS: 36415; 80053; 80061; 82043; 83880; 84153; 84443; 84550; 85025

== ENCOUNTER 2021-12-18 14:09 | Outpatient (REF) | payer MEDICARE, SELFPAY | END 2021-12-18 14:10 | disposition home or self-care (01) | LOC: HO.LAB 14:09 | PROVIDERS: PCP Family Medicine; Visit Provider Family Medicine | DX: Z12.5 Encounter for screening for malignant neoplasm of prostate (principal); N50.819 Testicular pain, unspecified | CPT/HCPCS: 36415; 84153 ==

== ENCOUNTER 2022-05-21 07:14 | Outpatient (REF) | payer MEDICARE, SELFPAY ==
[2022-05-21 11:15] LABS: MANUAL DIFF FLAG NO
[2022-05-21 11:19] LABS: Appearance Urine Clear; Color Urine Yellow; Glucose Urine UA >=1000 mg/dL (Negative); Leukocyte Esterase Urine Negative (Negative); Nitrite Urine Negative (Negative); UMIC TRIGGER UA YES; Urine Blood Negative (Negative); Urine Ketones Negative (Negative); Urine Protein 300 (3+) mg/dL (Neg-Trace)
[2022-05-21 11:27] LABS: Bacteria Urine None Seen (None Seen); Hyaline Casts Urine 0-2 /LPF (0-2); RBC Urine 0-2 /HPF (0-2); Squamous Epithelial Cell Urine 0-2 /HPF (0-2); WBC Urine 0-5 /HPF (0-5)
[2022-05-21 11:41] LABS: Basophils Percent Auto 0.6 % (0-2); Eosinophils Absolute Auto 0.4 X10*3/uL (0.0-0.4); Eosinophils Percent Auto 6.9 % (0-4); Hematocrit 49.7 % (42.0-52.0); Hemoglobin 16.9 g/dl (14.0-18.0); Imm Gran Abs Auto 0.03 X10*3/uL (0.00-0.03); Imm Gran Pct Auto 0.5 % (0.0-0.4); Lymphocytes Absolute Auto 1.3 X10*3/uL (1.2-4.9); Lymphocytes Percent Auto 20.5 % (20-40); Mean Corpuscular Hemoglobin 33.5 pg (27.0-33.0); Mean Corpuscular Volume 98.6 fL (80.0-98.0); Mean Platelet Volume 11.7 fL (9.4-12.4); Monocytes Absolute Auto 0.5 X10*3/uL (0.1-1.2); Monocytes Percent Auto 8.1 % (2-11); Neutrophils Absolute Auto 3.9 x10*3/uL (2.0-8.3); Neutrophils Percent Auto 63.4 % (45-73); Red Blood Count 5.04 X10*6/uL (4.60-5.80); Red Cell Distribution Width 12.9 % (11.0-16.0); White Blood Count 6.2 X10*3/uL (4.8-10.8)
[2022-05-21 12:03] LABS: Platelet Count 85 X10*3/uL (160-400)
[2022-05-21 12:16] LABS: Alanine Aminotransferase 15 U/L (0-40); Albumin Level 4.3 g/dL (3.5-5.0); Alkaline Phosphatase 54 U/L (39-117); Anion Gap 14 (12-20); Aspartate Amino Transferase 16 U/L (5-37); Bilirubin Total 1.1 mg/dL (0.0-1.0); Blood Urea Nitrogen 23 mg/dL (9-16); Calcium 9.2 mg/dL (8.4-10.2); Carbon Dioxide 29 mmol/L (22-29); Chloride 105 mmol/L (96-108); Cholesterol 114 mg/dL; Estimated Glomerular Filt Rate 47; Glucose Fasting 98 mg/dL (60-99); HDL Cholesterol 48 mg/dL; LDL Cholesterol Calculated 54 mg/dl; Potassium 3.7 mmol/L (3.3-5.1); Sodium 144 mmol/L (135-145); TSH reflex Free T4 1.49 uIU/mL (0.32-4.0); Total Protein 6.4 g/dL (6.5-8.0); Triglycerides 60 mg/dL
[2022-05-21 12:29] LABS: Creatinine Urine 102.96 mg/dL
== END 2022-05-21 07:15 | disposition home or self-care (01) ==
LOC: HO.WFDLDS 07:14
PROVIDERS: Visit Provider Family Medicine
DX: Z00.00 Encounter for general adult medical examination without abnormal findings (principal); I10 Essential (primary) hypertension
CPT/HCPCS: 36415; 80053; 80061; 81001; 81003; 82043; 84443; 85025

== ENCOUNTER 2022-11-06 09:24 | Outpatient (REF) | payer MEDICARE, SELFPAY ==
[2022-11-06 11:50] LABS: Alanine Aminotransferase 14 U/L (0-40); Albumin Level 4.3 g/dL (3.5-5.0); Alkaline Phosphatase 50 U/L (39-117); Anion Gap 19 (12-20); Aspartate Amino Transferase 15 U/L (5-37); Bilirubin Total 0.9 mg/dL (0.0-1.0); Blood Urea Nitrogen 26 mg/dL (9-16); Calcium 9.7 mg/dL (8.4-10.2); Carbon Dioxide 20 mmol/L (22-29); Chloride 108 mmol/L (96-108); Estimated Glomerular Filt Rate 48; Glucose Random 111 mg/dL (60-115); Potassium 3.8 mmol/L (3.3-5.1); Sodium 143 mmol/L (135-145); Total Protein 6.8 g/dL (6.5-8.0)
[2022-11-06 12:23] LABS: Creatinine Urine 50.59 mg/dL
[2022-11-06 12:44] LABS: Microalbum/Creatinine Ratio Ur 1403.4 ug/mg cr
== END 2022-11-06 09:25 | disposition home or self-care (01) ==
LOC: HO.WFDLDS 09:24
PROVIDERS: Visit Provider Family Medicine
DX: I12.9 Hypertensive chronic kidney disease with stage 1 through stage 4 chronic kidney disease, or unspecified chronic kidney disease (principal); N18.9 Chronic kidney disease, unspecified
CPT/HCPCS: 36415; 80053; 82043

== ENCOUNTER 2022-11-11 08:30 | Outpatient (AMB) | payer MEDICARE, SELFPAY ==
--- NOTE | 2022-11-11 08:32 | A.OFFPC_ITS ---
Vital Signs 11/11/22 08:35 Height 5 ft 11 in Weight 254 lb 7 oz BMI 35.5 BP 122/78 Blood Pressure Location Lt brachial Position Sitting Pulse 54 Pulse Source Pulse Oximeter Pulse Oximetry (%) 96 Oxygen Delivery Method Room Air Intake Visit Reasons: f/u hypertension and chronic conditions Intake Note: Patient is here to follow up on hypertension and chronic conditions. Allergies No Known Allergies Allergy (Unknown, Verified 11/11/22 08:36) Tobacco use date assessed: 11/11/22 Fall risk assessment: No Falls in past year Dental Screening Did you have a dental visit in the last 12 months?: No Did you have a dental problem in the last 6 months where you did not have access to dental care?: No Was dental information given to patient?: No HPI f/u hypertension and chronic conditions HPI Details 67 y/o male presents to f/u hypertension and chronic conditions. Creatinine levels had increased from 1.48 to 1.5 and microalbumin/creatinine ratio had been high. Labs were drawn 11/06/22. Reviewed labs with pt. Creatinine levels imporved from 1.5 to 1.45. Microalb/Creat Ratio 1403.4. Construction And Maintenance Inspector had put him on Jardiance for renal protection and he does have elevated fasting blood sugars. Pt reports Jardiance has been getting too expensive for him. A1c today 11/11/22 is 5.0%. Blood pressure today is 122/78. He is on lisinopril 20mg, carvedilol 37.5mg and amlodipine 10mg daily. HPI Comments History of Present Illness Details Documentation assistance for Jonel Lacey MD, was provided by Rolan Brunner,? [employer] on 11/11/2022 8:57 AM EST. I, Dr. Lacey, have read, observed, and verified documentation.? [facility] Medical History Chronic renal failure Chronic renal insufficiency Congestive heart failure COPD (chronic obstructive pulmonary disease) CVA (cerebral vascular accident) History of hepatitis C virus infection Nicotine dependence Peripheral vascular disease Pneumonia Thrombocytopenia Vocal cord polyps Surgical History H/O bilateral hip replacements H/O colonoscopy History of esophagogastroduodenoscopy (EGD) Hx of cholecystectomy Social History Housing: House Patient Tobacco Use Status: Current everyday Tobacco user Cigarettes Per Day: 4 Years Smoked: 50 e-Cigarette/Vaping Use: Never Used Second Hand Smoke Exposure: No service: No Current occupational status: retired Current occupational exposures/hazards: No Cognitive needs: No Hearing needs: No Vision needs: No Questionnaire Thrive Questionnaire Date Thrive assessed: 01/29/21 MENA-7 AMB Questionnaire MENA-7 Date MENA - 7 assessed: 09/17/21 Source: Developed by Drs. Dylon Coughlin, Radha Adams, Nir Reddy and colleagues, with an educational andrea from [employer]. Review of Systems Const Denies chills, Denies fatigue, Denies fever(s), Denies headache(s) and Denies weakness ENT Denies dizziness and Denies headache(s) Card Denies chest pain, Denies lightheadedness, Denies dyspnea and Denies other (Palpitations) Resp Denies cough, Denies dyspnea, Denies wheezing and Denies other ( shortness of breath) Musc Denies numbness and Denies tingling Neuro Denies dizziness, Denies headache(s), Denies numbness, Denies tingling, Denies paresthesias and Denies weakness Psych Denies anxiety and Denies depression Endo Denies fatigue Aller/Immun Denies wheezing Physical exam (Primary Care) Vital Signs: Last Vital Signs Pulse 54 11/11/22 08:35 BP 122/78 11/11/22 08:35 Pulse Ox 96 11/11/22 08:35 Oxygen Delivery Method Room Air 11/11/22 08:35 BMI result Body Mass Index 35.5 Tobacco/Smoking Status: Tobacco use Status Tobacco use date assessed 11/11/22 11/11/22 08:40 Patient Tobacco Use Status Current everyday Tobacco 11/11/22 08:32 e-Cigarette/Vaping Use Never Used 11/11/22 08:32 Thrive Assessment: Date of Thrive Assessment Date Thrive assessed 01/29/21 11/11/22 08:32 Const General: no acute distress and well developed Nutritional Appearance: well nourished Orientation/consciousness: patient oriented x3 HENMT Head: Yes normocephalic and Yes atraumatic Eyes General: appearance normal, both eyes and all related structures Pupils: Equal, round and reactive pupils present EOM: EOMs intact bilaterally Resp Effort & Inspection: normal respiratory effort Auscultation: clear to auscultation bilaterally Cardio Rate: regular rate Rhythm: regular rhythm Heart sounds: S1 normal heart sound present, S2 normal heart sound present, no gallops, no murmurs and no rubs Neuro General: patient oriented x3 and gait normal Cranial nerves: Yes Equal, round and reactive pupils present Psych Affect: normal affect Results AMB Hemoglobin A1c AMB Hemoglobin A1c 5.0 % Last Edit by Janette Luis CMA on 11/11/22 09:01 Assessment and Plan Assessment & Plan (1) Essential hypertension: Code(s): I10 - Essential (primary) hypertension Plan: Blood pressure is controlled. Goal is less than 130/80 Continue current medication regimen (2) Chronic renal failure: Code(s): N18.9 - Chronic kidney disease, unspecified Plan: Renal function stable or slightly improved Construction And Maintenance Inspector has put him on Jardiance for renal protection and he does have elevated fasting blood sugars but these appear well controlled with an A1c of 5.0% today. Follow-up with nephrology as recommended (3) Microalbuminuria: Code(s): R80.9 - Proteinuria, unspecified Plan: As above, follow-up with nephrology (4) Elevated fasting glucose: Code(s): R73.01 - Impaired fasting glucose Plan: History of elevated fasting blood sugars and chronic renal failure Construction And Maintenance Inspector has placed him Jardiance A1c today 5.0% Continue current medications Encouraged diet low in sugars and starches Orders: Orders Comprehensive [facility]. Panel Fast Today Z00.00 - Encounter for general adult medi aliya examination without abnormal findings Hemoglobin A1c Today R73.01 - Impaired fasting glucose Lipid Panel Today Z00.00 - Encounter for general adult medical examination without abnormal findings Prostate Specific Antigen Scr Today Z12.5 - Encounter for screening for malignant neoplasm of prostate TSH reflex Free T4 Today Z00.00 - Encounter for general adult medical examination without abnormal findings Microalbumin, Random (w Creat) Today I10 - Essential (primary) hypertension Complete Blood Count Auto Diff Today Z00.00 - Encounter for general adult medical examination without abnormal findings UA and rflx microscopic Today Z00.00 - Encounter for general adult medical examination without abnormal findings AMB Hemoglobin A1c Today Z13.9 - Encounter for screening, unspecified Coding Level of Care Code Est Pt Level 4 (27952) Diagnoses Essential hypertension I10 Chronic renal failure N18.9 Microalbuminuria R80.9 Elevated fasting glucose R73.01
[2022-11-11 08:35] VITALS: BP 122/78; PULSE 54; O2SAT 96; BMI 35.5
== END 2022-11-11 09:08 | disposition home or self-care (01) ==
PROVIDERS: Visit Provider Family Medicine
DX: I12.9 Hypertensive chronic kidney disease with stage 1 through stage 4 chronic kidney disease, or unspecified chronic kidney disease (principal); N18.9 Chronic kidney disease, unspecified; R80.9 Proteinuria, unspecified; R73.01 Impaired fasting glucose
CPT/HCPCS: 83036; 99214

== ENCOUNTER 2022-12-09 11:37 | Outpatient (AMB) | payer MEDICARE, SELFPAY ==
--- NOTE | 2022-12-09 11:43 | A.OFFPC_ITS ---
Vital Signs 12/09/22 11:45 Height 5 ft 11 in Weight 254 lb BMI 35.4 BP 124/72 Blood Pressure Location Lt brachial Position Sitting Pulse 73 Pulse Source Pulse Oximeter Pulse Oximetry (%) 92 Oxygen Delivery Method Room Air Intake Visit Reasons: Paperwork for work Intake Note: Patient is here for paperwork to be filled out for work. Allergies No Known Allergies Allergy (Unknown, Verified 12/09/22 11:46) Tobacco use date assessed: 12/09/22 Fall risk assessment: No Falls in past year Last assessed Fall Risk: 12/09/22 Dental Screening Dental Screen Date: 12/09/22 Did you have a dental visit in the last 12 months?: Yes Did you have a dental problem in the last 6 months where you did not have access to dental care?: No Was dental information given to patient?: Patient declined HPI Paperwork for work HPI Details 67 y/o male presents today for paperwork for work. 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 [facility] Medical History Chronic renal failure Chronic renal insufficiency Congestive heart failure COPD (chronic obstructive pulmonary disease) CVA (cerebral vascular accident) History of hepatitis C virus infection Nicotine dependence Peripheral vascular disease Pneumonia Thrombocytopenia Vocal cord polyps Surgical History H/O bilateral hip replacements H/O colonoscopy History of esophagogastroduodenoscopy (EGD) Hx of cholecystectomy Social History Housing: House Patient Tobacco Use Status: Current everyday Tobacco user Cigarettes Per Day: 4 Years Smoked: 50 Packs per year/per ci.00 e-Cigarette/Vaping Use: Never Used Second Hand Smoke Exposure: No service: No Current occupational status: retired Current occupational exposures/hazards: No Cognitive needs: No Hearing needs: No Vision needs: No Questionnaire Thrive Questionnaire Date Thrive assessed: 01/29/21 MENA-7 AMB Questionnaire MENA-7 Date MENA - 7 assessed: 09/17/21 Source: Developed by Drs. Dylon Coughlin, Radha Adams, Nir Reddy and colleagues, with an educational andrea from [employer]. Physical exam (Primary Care) Vital Signs: Last Vital Signs Pulse 73 12/09/22 11:45 BP 124/72 12/09/22 11:45 Pulse Ox 92 12/09/22 11:45 Oxygen Delivery Method Room Air 12/09/22 11:45 BMI result Body Mass Index 35.4 Tobacco/Smoking Status: Tobacco use Status Tobacco use date assessed 12/09/22 12/09/22 11:51 Patient Tobacco Use Status Current everyday Tobacco 12/09/22 11:45 e-Cigarette/Vaping Use Never Used 12/09/22 11:45 Thrive Assessment: Date of Thrive Assessment Date Thrive assessed 01/29/21 12/09/22 11:45 Assessment and Plan Assessment & Plan (1) History of CVA (cerebrovascular accident): Code(s): Z86.73 - Personal history of transient ischemic attack (TIA), and cerebral infarction without residual deficits Plan: Patient has no focal neurologic deficits. Good strength in all limbs. He has had no history of seizures. He is not on any medications which should lower seizure threshold or be a risk for loss of consciousness or confusion. He has diabetes but is not on insulin. 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 Coding Level of Care Code Est Pt Level 3 (60303) Diagnoses History of CVA (cerebrovascular accident) Z86.73
[2022-12-09 11:45] VITALS: BP 124/72; PULSE 73; O2SAT 92; BMI 35.4
== END 2022-12-09 13:12 | disposition home or self-care (01) ==
PROVIDERS: PCP Family Medicine; Visit Provider Family Medicine
DX: Z86.73 Personal history of transient ischemic attack (TIA), and cerebral infarction without residual deficits (principal)
CPT/HCPCS: 99213

== ENCOUNTER 2023-02-19 08:18 | Outpatient (REF) | payer MEDICARE, SELFPAY ==
[2023-02-19 09:14] LABS: Basophils Percent Auto 0.7 % (0-2); Eosinophils Absolute Auto 0.4 X10*3/uL (0.0-0.4); Eosinophils Percent Auto 7.3 % (0-4); Hematocrit 48.6 % (42.0-52.0); Hemoglobin 16.3 g/dl (14.0-18.0); Imm Gran Abs Auto 0.05 X10*3/uL (0.00-0.03); Imm Gran Pct Auto 0.9 % (0.0-0.4); Lymphocytes Percent Auto 17.8 % (20-40); MANUAL DIFF FLAG SCAN; Mean Corpuscular HGB Conc 33.5 g/dl (31.0-36.0); Mean Corpuscular Hemoglobin 33.5 pg (27.0-33.0); Mean Corpuscular Volume 99.8 fL (80.0-98.0); Mean Platelet Volume 10.6 fL (9.4-12.4); Monocytes Absolute Auto 0.4 X10*3/uL (0.1-1.2); Monocytes Percent Auto 6.6 % (2-11); Neutrophils Absolute Auto 3.6 x10*3/uL (2.0-8.3); Neutrophils Percent Auto 66.7 % (45-73); PLT CLUMP 1; Red Blood Count 4.87 X10*6/uL (4.60-5.80); Red Cell Distribution Width 13.7 % (11.0-16.0); SCAN SMEAR FLAG 1
[2023-02-19 09:15] LABS: White Blood Count 5.5 X10*3/uL (4.8-10.8)
[2023-02-19 09:28] LABS: Estimated Average Glucose 94 mg/dL; Hemoglobin A1c % 4.9 % (<6.0)
[2023-02-19 09:54] LABS: Alanine Aminotransferase 13 U/L (0-40); Albumin Level 4.4 g/dL (3.5-5.0); Alkaline Phosphatase 45 U/L (39-117); Anion Gap 11 (12-20); Aspartate Amino Transferase 16 U/L (5-37); Bilirubin Total 0.9 mg/dL (0.0-1.0); Blood Urea Nitrogen 22 mg/dL (9-16); Calcium 9.6 mg/dL (8.4-10.2); Carbon Dioxide 29 mmol/L (22-29); Chloride 108 mmol/L (96-108); Cholesterol 117 mg/dL (<200); Estimated Glomerular Filt Rate 52; Glucose Fasting 95 mg/dL (60-99); HDL Cholesterol 50 mg/dL (>40); LDL Cholesterol Calculated 57 mg/dL (<100); Sodium 144 mmol/L (135-145); Total Protein 7.1 g/dL (6.5-8.0); Triglycerides 54 mg/dL (<150)
[2023-02-19 10:03] LABS: Platelet Count 100 X10*3/uL (160-400); SLIDE REVIEW VERIFIED
[2023-02-19 10:06] LABS: Prostate Specific Antigen Scr 0.54 ng/mL (<0.05-4.0)
[2023-02-19 10:11] LABS: TSH reflex Free T4 0.65 uIU/mL (0.32-4.0)
[2023-02-19 10:12] LABS: Appearance Urine Clear; Color Urine Yellow; Glucose Urine UA >=1000 mg/dL (Negative); Leukocyte Esterase Urine Negative (Negative); Nitrite Urine Negative (Negative); PH 6.5 (5.0-9.0); Specific Gravity - Urine 1.015 (1.005-1.025); UMIC TRIGGER UA YES; Urine Blood Negative (Negative); Urine Ketones Negative (Negative); Urine Protein 100 (2+) mg/dL (Neg-Trace)
[2023-02-19 10:17] LABS: Bacteria Urine None Seen (None Seen); Hyaline Casts Urine 0-2 /LPF (0-2); RBC Urine 0-2 /HPF (0-2); Squamous Epithelial Cell Urine 0-2 /HPF (0-2); WBC Urine 0-5 /HPF (0-5)
[2023-02-19 10:50] LABS: Creatinine Urine 45.39 mg/dL
[2023-02-19 11:01] LABS: Microalbum/Creatinine Ratio Ur 1321.8 ug/mg cr (<30)
== END 2023-02-19 08:19 | disposition home or self-care (01) ==
LOC: HO.LAB 08:18
PROVIDERS: PCP Family Medicine; Visit Provider Family Medicine
DX: Z00.00 Encounter for general adult medical examination without abnormal findings (principal); Z12.5 Encounter for screening for malignant neoplasm of prostate; I10 Essential (primary) hypertension; R73.01 Impaired fasting glucose
CPT/HCPCS: 36415; 80053; 80061; 81001; 82043; 82570; 83036; 84153; 84443; 85025

== ENCOUNTER 2023-02-26 12:28 | Outpatient (AMB) | payer MEDICARE, SELFPAY ==
[2023-02-26 12:34] VITALS: BP 124/70; PULSE 67; RESP 14; TEMP 36.4; O2SAT 95; BMI 35.8
--- NOTE | 2023-02-26 12:34 | MHC.PC.OV ---
Vital Signs 02/26/23 12:34 Height 5 ft 11 in Weight 256 lb 8 oz BMI 35.8 BP 124/70 Blood Pressure Location Rt brachial Position Sitting Respiration 14 Pulse 67 Pulse Source Pulse Oximeter Temp 97.5 F Temp Source Temporal Artery Scan Pulse Oximetry (%) 95 Oxygen Delivery Method Room Air Intake Visit Reasons: Extended exam with f/u labs and health maintenance Intake Note: Patient states that he needs a paperscript or new script sent to a different pharmacy for certain scripts. Distribution Center Manager Required: No Accompanied by: Self / Same As Patient Allergies No Known Allergies Allergy (Unknown, Verified 02/26/23 12:41) Tobacco use date assessed: 12/09/22 Fall risk assessment: No Falls in past year Last assessed Fall Risk: 02/26/23 Dental Screening Dental Screen Date: 02/26/23 Did you have a dental visit in the last 12 months?: No Did you have a dental problem in the last 6 months where you did not have access to dental care?: No Was dental information given to patient?: Yes HPI Extended exam with f/u labs and health maintenance HPI Details 67 y/o male presents for an extended exam with f/u labs and health maintenance. Labs were drawn 02/19/23. Reviewed labs with pt. A1c 4.9%. Liver enzymes are fine. Triglycerides 54. TC 117. LDL 57. HDL 50. Macrocytosis but no anemia. Thrombocytopenia. Blood pressure today 124/70. He is on lisinopril 20mg, amlodipine 10mg and carvedilol 375mg. [facility] Medical History Vocal cord polyps Chronic renal insufficiency CVA (cerebral vascular accident) Pneumonia Thrombocytopenia Peripheral vascular disease History of hepatitis C virus infection Chronic renal failure Nicotine dependence COPD (chronic obstructive pulmonary disease) Congestive heart failure Surgical History History of esophagogastroduodenoscopy (EGD) Hx of cholecystectomy H/O colonoscopy H/O bilateral hip replacements Social History Housing: House Patient Tobacco Use Status: Current everyday Tobacco user Cigarettes Per Day: 4 Years Smoked: 50 e-Cigarette/Vaping Use: Never Used Second Hand Smoke Exposure: No service: No Current occupational status: retired Current occupational exposures/hazards: No Cognitive needs: No Hearing needs: No Vision needs: No Questionnaire PHQ-9 Over the last 2 weeks, how often have you been bothered by any of the following problems? 1. Little interest or pleasure in doing things: not at all 2. Feeling down, depressed, or hopeless: not at all 3. Trouble falling or staying asleep, or sleeping too much: not at all 4. Feeling tired or having little energy: not at all 5. Poor appetite or overeating: not at all 6. Feeling bad about yourself - or that you are a failure or have let yourself or your family down: not at all 7. Trouble concentrating on things, such as reading the newspaper or watching television: not at all 8. Moving or speaking so slowly that other people could have noticed. Or the opposite - being so fidgety or restless that you have been moving around a lot more than usual: not at all 9. Thoughts that you would be better off or of hurting yourself in some way: not at all Total score: 0 Depression Screening Interpretation: Negative Depression Screening Done: Yes 67960 - PHQ-9 Billing: Yes Source: Developed by Drs. Dylon Coughlin, Radha Adams, Nir Reddy and colleagues, with an educational andrea from [employer]. Thrive Questionnaire Date Thrive assessed: 02/26/23 I am a: Patient What is your living situation today?: I have a steady place to live Within the past 12 months, did the food you bought not last and you didn't have the money to get more?: Never true Within the past 12 months, did you worry whether your food would run out before you got money to buy more?: Never true Do you have trouble paying for medicines?: Yes Do you have trouble getting transportation to medical appointments?: No Do you have trouble paying your heating and electricity bill?: No Do you have trouble taking care of your child, family member or friend?: No Do you have trouble with day-to-day activities such as bathing, preparing meals, shopping, managing finances, etc.?: No Are you currently unemployed and looking for a job?: No Are you interested in more education?: No Please select the resources that you would like help with: Paying for medicine Currently or been in a relationship where the following occur: no concerns reported AUDIT C Alcohol Use Questionnaire (AUDIT-C) 1. How often do you have a drink containing alcohol?: 4 or more times a week 2. How many drinks containing alcohol do you have on a typical day when you are drinking?: 1 or 2 3. How often do you have six or more drinks on one occasion?: Never Total Score: 4 MENA-7 AMB Questionnaire MENA-7 Date MENA - 7 assessed: 02/26/23 Feeling nervous, anxious, or on edge: 0 = Not at all Not being able to stop or control worryin = Not at all Worrying too much about different things: 0 = Not at all Trouble relaxin = Not at all Being so restless that it is hard to sit still: 0 = Not at all Becoming easily annoyed or irritable: 0 = Not at all Feeling afraid as if something awful might happen: 0 = Not at all Total MENA-7 score (0-4 normal; 5-9 mild; 10-14 moderate; 15-21 severe): 0 Source: Developed by Drs. Dylon Coughlin, Radha Adams, Nir Reddy and colleagues, with an educational andrea from [employer]. MENA-7 Assessment Billing MENA-7 Assessment Tool: MENA-7 Assessment 02170 Review of Systems Const Denies chills, Denies fatigue, Denies fever(s), Denies headache(s) and Denies weakness Eyes Denies change in vision ENT Denies dizziness, Denies headache(s), Denies hearing loss, Denies nasal congestion, Denies sinus pain, Denies sinus pressure and Denies sore throat Card Denies chest pain, Denies lightheadedness, Denies dyspnea and Denies other (palpitations) Resp Denies cough, Denies dyspnea and Denies wheezing GI Denies abdominal pain, Denies melena, Denies hematochezia, Denies change in bowel habits, Denies dyspepsia and Denies nausea Denies hematuria and Denies dysuria Musc Denies abnormal gait, Denies myalgias, Denies arthralgias, Denies numbness and Denies tingling Skin/Breast Denies rash, Denies unusual bruising and Denies wounds Neuro Denies abnormal gait, Denies dizziness, Denies headache(s), Denies memory loss, Denies numbness, Denies Sensory deficit (Neuro), Denies tingling and Denies weakness Psych Denies anxiety, Denies depression and Denies memory loss Endo Denies cold intolerance, Denies fatigue, Denies heat intolerance, Denies polydipsia and Denies polyuria Christopher/Lymph Denies easy bleeding and Denies easy bruising Aller/Immun Denies wheezing Physical exam (Primary Care) Vital Signs: Last Vital Signs Temp 97.5 F 02/26/23 12:34 Pulse 67 02/26/23 12:34 Resp 14 02/26/23 12:34 BP 124/70 02/26/23 12:34 Pulse Ox 95 02/26/23 12:34 Oxygen Delivery Method Room Air 02/26/23 12:34 BMI result Body Mass Index 35.8 Tobacco/Smoking Status: Tobacco use Status Tobacco use date assessed 12/09/22 02/26/23 12:37 Patient Tobacco Use Status Current everyday Tobacco 02/26/23 12:37 e-Cigarette/Vaping Use Never Used 02/26/23 12:37 PHQ-9: PHQ-9 Score PHQ-9: Total score 0 02/26/23 12:52 Depression Screening Interpretation: Negative Thrive Assessment: Date of Thrive Assessment Date Thrive assessed 02/26/23 02/26/23 12:47 Currently or been in a relationship where the following occur: no concerns reported Const General: no acute distress, well developed, alert and awake Nutritional Appearance: obese Orientation/consciousness: patient oriented x3 HENMT Head: Yes normocephalic and Yes atraumatic Ears: hearing grossly normal bilaterally and TM's normal bilaterally General nose exam: Normal external nose present and Normal nares present Mouth: Normal oral and palatal mucosa present and moist mucous membranes Teeth and gingiva: dentition normal Throat: Yes posterior oropharynx normal Eyes General: appearance normal, both eyes and all related structures Pupils: Equal, round and reactive pupils present and Pupil accommodation reflex normal EOM: EOMs intact bilaterally Neck Neck: Yes normal visual inspection, Yes no lymphadenopathy and Yes trachea midline Thyroid: Thyroid normal Carotids: no bruits Lymphatic: no lymphadenopathy noted Chest Chest palpation & inspection: normal inspection of the chest Resp Effort & Inspection: normal respiratory effort Auscultation: clear to auscultation bilaterally Cardio Rate: regular rate Rhythm: regular rhythm Heart sounds: S1 normal heart sound present, S2 normal heart sound present, no gallops, no murmurs and no rubs Bruits: no abdominal aortic bruits and no carotid bruits GI Palpation (GI): No Abdominal aortic bruit present, Soft to palpation, nontender, No hepatosplenomegaly present and No Rebound tenderness present Auscultation: normal bowel sounds General: Yes no CVA tenderness Back/Spine/Pelvis Back: no CVA tenderness Cervical Spine: cervical ROM normal and No Cervical spine tenderness Thoracic/Lumbar Spine: thoraco-lumbar ROM normal, No pain with thoraco-lumbar ROM, No thoracic spinal tenderness and No lumbar spinal tenderness Skin Lesions: no lesions Rashes: no rashes Trauma: no lacerations or abrasions Wounds: no wounds Nails: normal Neuro General: patient oriented x3 Cranial nerves: Yes Equal, round and reactive pupils present Cognition (Neuro): normal cognition Gait exam (Neuro): Normal gait present Motor exam (neuro): 5/5 motor strength present throughout Sensory Exam: No Sensory deficit (Neuro) Deep tendon reflexes (DTR's): Right patellar reflex intensity grade: 2+ and Left patellar reflex intensity grade: 2+ Extrem General: Yes normal to inspection and No edema Psych Appearance: grossly normal Affect: normal affect Attitude: cooperative Thought process: Normal thought process present Assessment and Plan Assessment & Plan (1) Essential hypertension: Code(s): I10 - Essential (primary) hypertension Plan: Blood?pressure?is?controlled. ?Goal?is Less?than?130/80 Continue?current?medication (2) Thrombocytopenia: Code(s): D69.6 - Thrombocytopenia, unspecified Plan: Stable Will?continue?to?follow (3) Hypertriglyceridemia: Code(s): E78.1 - Pure hyperglyceridemia Plan: Lipids?are?well?controlled.??Continue?current?medications (4) Macrocytosis: Code(s): D75.89 - Other specified diseases of blood and blood-forming organs Plan: Mild?macrocytosis?without?anemia Will?follow Can?try?B12?supplement (5) Proteinuria: Code(s): R80.9 - Proteinuria, unspecified Plan: Continue?to?maintain?good?blood?pressure,?blood?sugar?and?lipid?control Follow-up?with?nephrology?as?recommended (6) Microalbuminuria: Code(s): R80.9 - Proteinuria, unspecified Plan: As?above (7) Screening for colon cancer: Code(s): Z12.11 - Encounter for screening for malignant neoplasm of colon Plan: Patient?says?he?had?Cologuard?test?recently?but?results?seem?to?be?unavailable Will?ask?the?office?staff?to?check?on?results (8) Screening for prostate cancer: Code(s): Z12.5 - Encounter for screening for malignant neoplasm of prostate Plan: PSA?was?within?normal?limits (9) History of CVA (cerebrovascular accident): Code(s): Z86.73 - Personal history of transient ischemic attack (TIA), and cerebral infarction without residual deficits Plan: Stable (10) Adult general medical exam: Code(s): Z00.00 - Encounter for general adult medical examination without abnormal findings Plan: 67-year-old?male?presents?for?an?extended?exam Orders: Orders UA and rflx microscopic Today R80.9 - Proteinuria, unspecified, Z00.00 - Encounter for general adult medical examination without abnormal findings Comprehensive Met. Panel Today R80.9 - Proteinuria, unspecified Microalbumin, Random (w Creat) Today I10 - Essential (primary) hypertension, R80.9 - Proteinuria, unspecified Medications: New mecobalamin (vitamin B12) place tablet under tongue and allow to dissolve for at least30 secs before swallowing 1,000 mcg sublingual BEDTIME 90 tabs 2RF 90 days Refilled doxazosin 4 mg PO BEDTIME 90 days 90 tabs 3RF aspirin-dipyridamole 25-200 mg 1 cap PO BID 60 caps 3RF Coding Level of Care Code Est Pt Level 4 (92659) Diagnoses Essential hypertension I10 Thrombocytopenia D69.6 Hypertriglyceridemia E78.1 Macrocytosis D75.89 Proteinuria R80.9 Microalbuminuria R80.9 Screening for colon cancer Z12.11 Screening for prostate cancer Z12.5 History of CVA (cerebrovascular accident) Z86.73 Adult general medical exam Z00.00 Additional Codes MENA-7 Assessment Billing - MENA-7 Assessment Tool: MENA-7 Assessment [id number] ([id number])
== END 2023-02-26 13:58 | disposition home or self-care (01) ==
PROVIDERS: PCP Family Medicine; Visit Provider Family Medicine
DX: I10 Essential (primary) hypertension (principal); D69.6 Thrombocytopenia, unspecified; E78.1 Pure hyperglyceridemia; D75.89 Other specified diseases of blood and blood-forming organs; R80.9 Proteinuria, unspecified; Z12.11 Encounter for screening for malignant neoplasm of colon; Z12.5 Encounter for screening for malignant neoplasm of prostate; Z86.73 Personal history of transient ischemic attack (TIA), and cerebral infarction without residual deficits
CPT/HCPCS: 99214